=== PATIENT | male | born 1990 | race Caucasian/White ===

== ENCOUNTER 2018-03-12 12:14 | Emergency (ER) | payer OTHER, SELFPAY ==
[2018-03-12 12:15] VITALS: BP 133/76; PULSE 101; RESP 16; TEMP 37.3; O2SAT 97; BMI 29.3
--- NOTE | 2018-03-12 14:29 | ED.DCSUM_ITS ---
- ER Visit Summary Date of Service: 03/12/18 Chief Complaint: Left earache History of Present Illness: The patient is a 27 M no significant past medical or surgical history. Patient states she has had a gradual onset of left earache the last 5 days. Getting worse. Denies any trauma. Denies any fever. No prior ear surgery. Physical Examination: Well appearing 7-year-old male. No acute distress. Vital signs stable afebrile. HEENT exam left TM erythematous and dull. Canal is not swollen. There is no blood. TM is intact. Posterior pharynx normal. Right ear unremarkable. Neck nontender no lymphadenopathy. Trachea midline. Lungs clear to auscultation bilaterally. Heart regular rate and rhythm no murmur. Abdomen soft nontender. Otherwise exam unremarkable. He also has tenderness over his left eustachian tube. Test Results: None Emergency Department Course and Treatment: Treated for acute left otitis media. Amoxicillin 3 times daily for 10 days. Motrin and Tylenol for pain. Follow- up with James Martini his primary care physician if not improving. Treatment Plan: [] Disposition: Discharge Impression: Acute left otitis media This note was generated with [employer] dictation software. It may contain incorrect words, spelling, and punctuation that were not noted in review of the chart prior to signing ED Disposition - Plan for ED Patient: Chief Complaint: Ear Problem Referrals: Care Physician,No Primary [Primary Care Provider] -
--- NOTE | 2018-03-12 14:29 | ED.DEP ---
ED Disposition - Plan for ED Patient: Chief Complaint: Ear Problem Instructions: ED Otitis Media Acute Adult Prescriptions: Amoxicillin [Amoxil] 500 mg PO TID 10 Days tab.chew Referrals: Bartolo Sánchez MD [STAFF PHYSICIAN] - Additional Instructions: Today Tylenol and Motrin for left ear pain. Amoxicillin 1 pill 3 times a day for 10 days. All your primary care physician if not getting better return to ER feeling worse.
[2018-03-12] MEDS: AMOXICILLIN 500 MG CAPSULE PO (14:51)
== END 2018-03-12 14:52 | disposition home or self-care (01) ==
PROVIDERS: Emergency Provider Emergency Medicine; Family Provider Nurse Practitioner Family; PCP Nurse Practitioner Family
DX: H66.92 Otitis media, unspecified, left ear (principal)
CPT/HCPCS: 99283

== ENCOUNTER 2018-08-22 14:56 | Emergency (ER) | payer OTHER, SELFPAY ==
[2018-08-22 14:59] VITALS: BP 126/91; PULSE 101; RESP 17; TEMP 36.5; O2SAT 98; BMI 31.1
[2018-08-22 15:08] VITALS: BP 136/82; PULSE 70; RESP 16; O2SAT 98
--- NOTE | 2018-08-22 15:29 | ED.VISSUMM ---
- ER Visit Summary Date of Service: 08/22/18 Chief Complaint: Post auricular ear pain, decreased hearing for 1 week. History of Present Illness: The patient is a 27 M who presents with left ear pain that he localizes to the postauricular area. He denies ringing in his ears or loss of hearing. He states he has decreased hearing. He he denies discharge from the ear. He denies placing anything in the ear canal. He denies rhinorrhea, congestion, postnasal drainage or sore throat. He does complain of head pain secondary to the postauricular pain. He denies double vision, blurred vision or loss of vision. He has no other complaints. Physical Examination: Vital signs noted and remarkable for a blood pressure of 136/82. There is no discomfort with pushing on the tragus or pulling on the auricle. The external auditory canal is normal. TM is pearly white phlegm is noted. There is no fluid noted behind the TM. There is a mobile firm tender node with no overlying erythema noted. There is no post cervical or posterior occipital lymphadenopathy. There is no evidence of cellulitis of the auricle or face. Test Results: None Emergency Department Course and Treatment: NSAIDs since there is no contraindication Treatment Plan: Prescription for Naprosyn and follow-up with Dr. Martini is primary care provider Disposition: Discharged to home Impression: Left posterior lymphadenitis This note was generated with [employer] dictation software. It may contain incorrect words, spelling, and punctuation that were not noted in review of the chart prior to signing ED Disposition - Plan for ED Patient: Disposition: Home or Assisted Living Chief Complaint: Ear Problem Instructions: ED Cervical Adenitis No Abx Tx Prescriptions: Naproxen [Naprosyn] 500 mg PO BID #14 tablet Referrals: Marquis Pemberton, MARI-C [Primary Care Provider] - 1 Week if not improving Additional Instructions: Your prescription was electronically transmitted to [facility] pharmacy located on [facility].
--- NOTE | 2018-08-22 15:33 | ED.DCSUM_ITS ---
- ER Visit Summary Date of Service: 08/22/18 Chief Complaint: Post auricular ear pain, decreased hearing for 1 week. History of Present Illness: The patient is a 27 M who presents with left ear pain that he localizes to the postauricular area. He denies ringing in his ears or loss of hearing. He states he has decreased hearing. He he denies discharge from the ear. He denies placing anything in the ear canal. He denies rhinorrhea, congestion, postnasal drainage or sore throat. He does complain of head pain secondary to the postauricular pain. He denies double vision, blurred vision or loss of vision. He has no other complaints. Physical Examination: Vital signs noted and remarkable for a blood pressure of 136/82. There is no discomfort with pushing on the tragus or pulling on the auricle. The external auditory canal is normal. TM is pearly white phlegm is noted. There is no fluid noted behind the TM. There is a mobile firm tender node with no overlying erythema noted. There is no post cervical or posterior occipital lymphadenopathy. There is no evidence of cellulitis of the auricle or face. Test Results: None Emergency Department Course and Treatment: NSAIDs since there is no contraindi cation Treatment Plan: Prescription for Naprosyn and follow-up with Dr. Martini is primary care provider Disposition: Discharged to home Impression: Left posterior lymphadenitis This note was generated with [employer] dictation software. It may contain incorrect words, spelling, and punctuation that were not noted in review of the chart prior to signing ED Disposition - Plan for ED Patient: Disposition: Home or Assisted Living Chief Complaint: Ear Problem Instructions: ED Cervical Adenitis No Abx Tx Prescriptions: Naproxen [Naprosyn] 500 mg PO BID #14 tablet Referrals: Marquis Pemberton, MARI-C [Primary Care Provider] - 1 Week if not improving Additional Instructions: Your prescription was electronically transmitted to [facility] pharmacy located on [facility].
[2018-08-22] MEDS: Naproxen 250 MG Tablet 500 MG PO (15:44)
[2018-08-22 15:45] VITALS: BP 123/80; PULSE 83; RESP 16; O2SAT 96
== END 2018-08-22 15:46 | disposition home or self-care (01) ==
PROVIDERS: Emergency Provider Emergency Medicine; Family Provider Nurse Practitioner Family; PCP Nurse Practitioner Family
DX: I88.9 Nonspecific lymphadenitis, unspecified (principal); Z72.0 Tobacco use
CPT/HCPCS: 99283

== ENCOUNTER 2022-12-11 18:12 | Emergency (ER) | payer OTHER, SELFPAY ==
[2022-12-11 18:13] VITALS: BP 157/93; PULSE 102; RESP 18; TEMP 35.9; O2SAT 99; BMI 29.5
--- NOTE | 2022-12-11 18:30 | EX.ED.DYSGE1 ---
HPI History of Present Illness Chief Complaint: Allergic Reaction Narrative Narrative: Patient presents with rash on arms chest and inner thigh region. It is itchy. He thinks it secondary to the chemicals she works at work with. He has no difficulty breathing, no voice change no nausea or vomiting or any other systemic symptoms. \ PFSH PFSH Home Medications naproxen 500 mg tablet 500 mg PO BID ##14 08/22/18 [Rx Last Taken Unknown] Allergy/AdvReac Type Severity Reaction Status Date / Time grass pollen Allergy Hives Verified 12/11/22 18:15 Social History Smoking Status: Current some day smoker ROS ROS ED ROS Narrative Past medical history: Reviewed Medications: Reviewed Social history: Noncontributory Review of systems: All systems negative except as indicated General: No fever ENT: Normal voice Neck: No neck pain Cardiovascular: No chest pain Respiratory: No shortness of breath or cough Gastrointestinal: No abdominal pain, nausea vomiting or diarrhea Musculoskeletal: Denies myalgias no difficulty with ambulation Skin: Rash as in HPI EXAM Physical Exam Narrative Exam Narrative: Physical exam General: Well nourished, Well developed, No Acute Distress Head: Normocephalic, Atraumatic Eyes: Conjunctiva not pale ENT: Moist mucous membranes. Normal voice no stridor Neck: Supple, Nontender, No lymphadenopathy Cardiovascular: Regular rate, Regular rhythm Respiratory: No distress, CTA bilaterally Abdomen: Soft, Nontender, Nondistended Back: Nontender, Normal Inspection. Negative for: CVA tenderness Skin: Erythematous blanching rash that slightly raised on the arms axilla and inter thigh region. This appears allergic. No signs of infection. Const Vital Signs: 12/11/22 18:13 Temperature 96.7 F L Temperature Source Temporal Pulse Rate 102 H Respiratory Rate 18 Blood Pressure 157/93 H Blood Pressure Mean 114 Pulse Ox 99 Oxygen Delivery Method Room Air MDM MDM MDM Narrative Medical decision making narrative: Patient has allergic dermatitis. He appears well. He has no signs or symptoms of systemic involvement at this time. He has no shortness of breath or stridor, I did think about a CBC to see the white count make sure there is no infectious however he has no fever no other systemic signs and I believe at this point a CBC is not needed. He has dermatitis secondary to an allergic factor I will give him Kenalog IM in the emergency department and he can take Benadryl [id number] at home. I do not believe I need to prescribe Benadryl Discharge Plan Triage Chief Complaint: Allergic Reaction ED Provider: Nehemias Nelson Dx/Rx/DC Orders Clinical Impression: Allergic dermatitis, Allergic reaction Instructions: ED General Allergic Reactions Prescriptions: No Action naproxen 500 MG tablet 500 mg PO BID Qty: 14 0RF Primary Care Provider: Care Physician,No Primary Referrals: Care Physician,No Primary [Primary Care Provider] - 3-5 Days Disposition Disposition: Home, Self Care
[2022-12-11] MEDS: Triamcinolone Acetonide 40 MG/ML Vial IM (18:41)
== END 2022-12-11 19:03 | disposition home or self-care (01) ==
PROVIDERS: Emergency Provider Emergency Medicine; Visit Provider Emergency Medicine
DX: T78.40XA Allergy, unspecified, initial encounter (principal); L30.9 Dermatitis, unspecified; F17.200 Nicotine dependence, unspecified, uncomplicated; X58.XXXA Exposure to other specified factors, initial encounter
CPT/HCPCS: 96372; 99282

== ENCOUNTER 2023-08-27 10:36 | Emergency (ER) | payer OTHER, SELFPAY ==
[2023-08-27 10:37] VITALS: BP 153/100; PULSE 87; RESP 18; TEMP 36.2; O2SAT 100; BMI 27.6
--- NOTE | 2023-08-27 11:31 | EX.ED.DYSGE1 ---
HPI <LETY Singleton - Last Filed: 08/27/23 11:38> History of Present Illness Chief Complaint: Dental Narrative Narrative: Patient presenting today due to dental pain that he has had since . He reports that today he tried to eat a peanut butter and jelly sandwich and felt a, popping sensation to the tooth that has been causing him pain, he did not have any discharge from the area. He denies any fever or chills. Denies a PMH of any chronic health conditions. PFSH <LETY Singleton - Last Filed: 08/27/23 11:38> PFSH Medical History no medical history Home Medications naproxen 500 mg tablet 500 mg PO BID #14 tabs 08/22/18 [Rx Last Taken Unknown] naproxen 500 mg tablet 500 mg PO BID #14 tabs 08/27/23 [Rx Last Taken Unknown] penicillin V potassium 500 mg tablet 500 mg PO 4X/DAY #40 tabs 08/27/23 [Rx Last Taken Unknown] Allergy/AdvReac Type Severity Reaction Status Date / Time grass pollen Allergy Hives Verified 08/27/23 10:38 Surgical History no surgical history Social History Smoking Status: Current some day smoker tobacco type: cigarettes ROS <LETY Singleton - Last Filed: 08/27/23 11:38> ROS ED Constitutional Constitutional ED: Denies chills or fever(s) ENT ENT ED: Reports dental pain Cardiovascular Cardiovascular: Denies chest pain Respiratory/Chest Respiratory/Chest: Denies cough or dyspnea Gastrointestinal Gastrointestinal: Denies abdominal pain, nausea or vomiting Musculoskeletal Musculoskeletal: Denies arthralgias or myalgias Integumentary Denies rash Neurologic Neurologic: Denies weakness EXAM <LETY Singleton - Last Filed: 08/27/23 11:38> Physical Exam Const Vital Signs: 08/27/23 10:37 Temperature 97.2 F L Temperature Source Temporal Pulse Rate 87 Respiratory Rate 18 Blood Pressure 153/100 H Blood Pressure Mean 117 Pulse Ox 100 Oxygen Delivery Method Room Air Positive well nourished, well developed and no apparent distress General Appearance ED: well developed HEENT Reports normocephalic and head/scalp atraumatic HEENT Narrative: Posterior pharynx clear, uvula midline, no stridor, no trismus, dental caries to the left mandibular first molar, no sign of dental abscess Mouth ED: Yes moist mucous membranes normal Eyes PERRL and EOMs intact bilaterally Neck full ROM and supple Chest Wall inspection of chest normal Resp normal respiratory effort and clear to auscultation bilaterally Cardio regular rate and regular rhythm GI soft to palpation, non-tender, non-distended and no masses Back/Spine normal ROM and normal to inspection Extremity normal to inspection and full ROM Neuro oriented x3, CN's II-XII intact bilaterally, moves all extremities, no focal motor deficits and no sensory deficits noted Sensorium / Orientation: awake and alert Psych mental status grossly normal and thought process normal Skin no rashes or lesions noted and no wounds <Dr. Sergio Ragsdale MD - Last Filed: 08/27/23 12:51> Physical Exam Const Vital Signs: 08/27/23 10:37 Temperature 97.2 F L Temperature Source Temporal Pulse Rate 87 Respiratory Rate 18 Blood Pressure 153/100 H Blood Pressure Mean 117 Pulse Ox 100 Oxygen Delivery Method Room Air MDM <LETY Singleton - Last Filed: 08/27/23 11:38> [facility] Narrative Medical decision making narrative: Presenting with dental pain to the left mandibular first molar, there is a visible dental carry, no fluctuance or sign of dental abscess, no sign of Ludewig's angina, patient is well-appearing and in no acute distress, vitals are unremarkable. He does have a dentist to follow-up with. He will be started on penicillin and will be given a prescription for naproxen. He will be given first dose here. He will be discharged home in stable condition and is comfortable with plan. <Dr. Sergio Ragsdale MD - Last Filed: 08/27/23 12:51> [facility] Narrative Medical decision making narrative: Presenting with dental pain to the left mandibular first molar, there is a visible dental carry, no fluctuance or sign of dental abscess, no sign of Ludewig's angina, patient is well-appearing and in no acute distress, vitals are unremarkable. He does have a dentist to follow-up with. He will be started on penicillin and will be given a prescription for naproxen. He will be given first dose here. He will be discharged home in stable condition and is comfortable with plan. I have personally performed a face to face assessment of the patient and have reviewed the ELODIA Note. I performed a substantive portion of the visit including all aspects of the following. My lam findings include: History: Patient presents with left lower dental pain. He states it started hurting last week but then got better. Today he felt a popping sensation but no drainage. No fevers or chills. Exam: No facial swelling. Patient is nontoxic. He does have a small dental carry and some tenderness. Floor the mouth is not swollen. No sign of Sy's. Medical Decision Making: Patient will be treated with medications and recommend follow-up with dentist. Certainly if he has trouble swallowing or significant swelling he should return Discharge Plan Triage Chief Complaint: Dental ED Midlevel Provider: Noemi Reeves ED Provider: Sergio Ragsdale Dx/Rx/DC Orders Clinical Impression: Pain, dental, Dental cavity Instructions: ED Dental Pain Prescriptions: New naproxen 500 mg tablet 500 mg PO BID Qty: 14 0RF penicillin V potassium 500 mg tablet 500 mg PO 4X/DAY Qty: 40 0RF No Action naproxen 500 MG tablet 500 mg PO BID Qty: 14 0RF Primary Care Provider: Marquis Pemberton [employer] Referrals: Care Physician,No Primary [Non-Staff] - Activity Restrictions/Additional Instructions: Please follow-up with your dentist, take antibiotics as prescribed and return for any worsening of symptoms. Disposition Disposition: Home, Self Care Discharge Date/Time: 08/27/23 11:54
[2023-08-27] MEDS: Naproxen 250 MG Tablet 500 MG PO (11:48)
[2023-08-27] MEDS: Penicillin Vk 250 MG Tablet 500 MG PO (11:48)
== END 2023-08-27 11:54 | disposition home or self-care (01) ==
LOC: ED 11:53
PROVIDERS: Emergency Provider Emergency Medicine; PCP Nurse Practitioner Family; Visit Provider Emergency Medicine
DX: K02.9 Dental caries, unspecified (principal); F17.210 Nicotine dependence, cigarettes, uncomplicated
CPT/HCPCS: 99283

== ENCOUNTER 2024-02-20 22:13 | Emergency (ER) | payer BC, SELFPAY ==
[2024-02-20 22:14] VITALS: BP 137/84; PULSE 79; RESP 18; TEMP 36.8; O2SAT 97
--- NOTE | 2024-02-20 22:27 | EX.ED.VIS.PS ---
HPI HPI - Psych History of Present Illness Chief Complaint: Suicidal Informant: patient Onset/Context/Timing Onset: Today Context: Sudden Onset Associated Symptoms Associated Symptoms - Psych: Positive for Suicidal Thoughts; Negative for Visual Hallucinations or Auditory Hallucinations Specific plan (suicidal thought): cut wrist w/ razor he was holding Narrative Narrative: 33-year-old male states he is upset about his . Apparently his is an alcoholic according to him, and he states tonight he got into the shower and she took that opportunity to leave. He does not expand upon this, when asked if she left for the evening or left him for good he states basically she is missing and just plain left. No one can get a hold of her, she will not answer her phone, including her daughter who also left the house, was living with them. As result of all of this, states he wanted to cut his wrist with a razor blade but instead I pick pulling machine tender the phone and called for help and now I am here. PFSH PFSH Medical History no medical history no medical history Home Medications NK 02/20/24 [History Last Taken Unknown] Allergy/AdvReac Type Severity Reaction Status Date / Time grass pollen Allergy Hives Verified 02/20/24 22:14 Surgical History no surgical history Social History (Updated 02/20/24 @ 22:[address] Roberto Carlos Erickson MD) Smoking Status: Current some day smoker tobacco type: cigarettes substance use type: marijuana ROS ROS ED Constitutional Constitutional ED: Denies chills or fever(s) Eyes Eyes: Denies change in vision or diplopia ENT ENT ED: Denies rhinorrhea or sore throat Cardiovascular Cardiovascular: Denies chest pain or palpitations Respiratory/Chest Respiratory/Chest: Denies cough or dyspnea Gastrointestinal Gastrointestinal: Denies abdominal pain, diarrhea, nausea or vomiting Genitourinary Genitourinary ED: Denies dysuria or hematuria Musculoskeletal Musculoskeletal: Denies back pain or neck pain Integumentary Denies abscess or rash Neurologic Neurologic: Denies headache(s), paresthesias or weakness Psychiatric Psychiatric: Reports anxiety, depression, suicidal ideation and suicidal thoughts; Denies homicidal ideation EXAM Physical Exam Const Vital Signs: 02/20/24 22:14 02/20/24 23:14 02/20/24 23:23 Temperature 98.3 F Temperature Source Oral Pulse Rate 79 74 72 Respiratory Rate 18 18 Blood Pressure 137/84 H 134/74 H Blood Pressure Mean 101 94 Pulse Ox 97 97 Oxygen Delivery Method Room Air Room Air Positive well nourished and well developed General Appearance ED: well developed and NAD HEENT Reports moist mucous membranes normocephalic and atraumatic Eyes PERRL and EOMs intact bilaterally General Eye ED: Negative for scleral icterus Neck no lymphadenopathy and supple Resp normal respiratory effort and clear to auscultation bilaterally Cardio no murmurs Rate: regular rate Rhythm: regular rhythm GI non-tender and non-distended Auscultation: normoactive bowel sounds Palpation: soft Back/Spine no CVA tenderness and normal ROM Extremity normal to inspection General Extremety ED: Negative for edema General Extremity: Negative for edema Neuro oriented x3, CN's II-XII intact bilaterally, no sensory deficits noted and gait normal Sensorium / Orientation: alert Motor Exam: strength 5/5 throughout Psych mental status grossly normal, thought process normal, cooperative, activity/motor behavior normal and denies homicidal ideation Mood & Affect: depressed and anxious Thought Content: suicidality Insight: insight good Judgement: poor Skin Lesions: no lesions Rashes: no rashes MDM MDM MDM Narrative Medical decision making narrative: Given the patient's history he is given a sitter. Labs obtained as well as toxicology positive for marijuana only which he admits to using, he is otherwise medically cleared for psychiatric evaluation. Crisis contacted to evaluate. Patient cooperative. Crisis agrees that the patient has severe impulsivity issues, and based mostly upon this, recommends placement which I am not opposed to. Lab Data Attestation: I reviewed the patient's lab results. Labs: Laboratory Results - last 24 hr 02/20/24 22:41 WBC 9.2 RBC 4.97 Hgb 14.4 Hct 44.0 MCV 88.5 MCH 29.0 MCHC 32.7 RDW Std Deviation 43.2 RDW Coeff of Arielle 13.4 Plt Count 321 MPV 9.1 Immature Gran % (Auto) 0.200 Neut % (Auto) 79.1 H Lymph % (Auto) 14.[address] [place] % (Auto) 5.7 Eos % (Auto) 0.1 Baso % (Auto) 0.4 Absolute Neuts (auto) 7.3 Absolute Lymphs (auto) 1.34 Nucleated RBC % 0 Sodium 140 Potassium 4.6 Chloride 105 Carbon Dioxide 30.0 Anion Gap 5 BUN 17 Creatinine 0.90 Est GFR (MDRD) Af Amer 126 Est GFR (MDRD) Non-Af 104 BUN/Creatinine Ratio 18.9 Glucose 119 H Calcium 9.2 Urine Opiates Screen NEGATIVE Urine Methadone Screen NEGATIVE Ur Barbiturates Screen NEGATIVE Ur Phencyclidine Scrn NEGATIVE Ur Amphetamines Screen NEGATIVE MDMA (Ecstasy) Screen NEGATIVE U Benzodiazepines Scrn NEGATIVE Urine Cocaine Screen NEGATIVE U Cannabinoids Screen POSITIVE H Ur Drug Screen Comment Ethyl Alcohol < 3.0 Management Discussion w/another healthcare provider: generator worker/Case management Discharge Plan Triage Chief Complaint: Suicidal ED Provider: Roberto Carlos Erickson Dx/Rx/DC Orders Clinical Impression: Suicidal ideation Prescriptions: No Action NK Primary Care Provider: Care Physician,No Primary Referrals: Care Physician,No Primary [Primary Care Provider] - Disposition Disposition: Psychiatric Hospital or Unit
[2024-02-20 22:49] LABS: Absolute Lymphocyte Count 1.34 X10^3/uL (0.83-4.51); Absolute Neutrophil Count 7.3 X10^3/uL (2.0-7.7); Basophil# 0.04 X10^3/uL; Basophil% 0.4 % (0-1); Eosinophil# 0.01 X10^3/uL; Eosinophils% 0.1 % (0-5); Hemoglobin 14.4 g/dL (13.0-16.5); Lymphocyte # 1.34 X10^3/ul (0.83-4.51); Lymphocyte % 14.5 % (19-41); Mean Corp Hgb Conc 32.7 g/dL (32-36); Mean Corpuscular Volume 88.5 fL (80-94); Mean Platelet Vol. 9.1 fl (6.2-12.0); Monocyte# 0.53 X10^3/uL; Monocyte% 5.7 % (0-10); NRBC Flagged by Analyzer 0 % (0-5); Neutrophil # 7.29 X10^3/uL (2.7-7.7); Neutrophil % 79.1 % (47-70); Platelet Count 321 K/mm3 (150-450); RBC Distribution Width CV 13.4 % (11.6-14.6); RBC Distribution Width SD 43.2 fl (35.1-43.9); Red Blood Count 4.97 M/mm3 (4.6-6.2); White Blood Count 9.2 K/mm3 (4.4-11.0)
[2024-02-20 23:05] LABS: Alcohol, Blood (Medical)-Serum < 3.0 mg/dL; Amphetamine Urine VISTA NEGATIVE (<1000 ng/mL); Barbiturate Urine VISTA NEGATIVE (< 200 ng/mL); Benzodiazepine Urine VISTA NEGATIVE (< 200 ng/mL); Cocaine Urine VISTA NEGATIVE (< 300 ng/mL); Ecstacy Urine VISTA NEGATIVE (< 500 ng/mL); Methadone Urine VISTA NEGATIVE (< 300 ng/mL); PCP Urine VISTA NEGATIVE (< 25 ng/mL); THC Urine VISTA POSITIVE (< 50 ng/mL); Vista UDS pH Range 5
[2024-02-20 23:07] LABS: Anion Gap 5 (5-15); BUN 17 mg/dL (7-18); BUN/Creat Ratio 18.9 RATIO (10-20); Calcium,Total 9.2 mg/dL (8.5-10.1); Chloride 105 mmol/L (98-107); EST Glomerular Filtration Rate 104 mL/min (>60); Est Glom Filt Rate - Afr Amer 126 mL/min (>60); Glucose 119 mg/dL (74-106); Potassium 4.6 mmol/L (3.5-5.1); Sodium Level 140 mmol/L (136-145)
[2024-02-20 23:14] VITALS: PULSE 74
[2024-02-20 23:23] VITALS: BP 134/74; PULSE 72; RESP 18; O2SAT 97
--- NOTE | 2024-02-21 00:21 | NURSING ---
INFORMED CRISIS AT 0005
--- NOTE | 2024-02-21 07:28 | NURSING ---
CALLED [facility], TALKED TO YURY. ETA IS 8 AM CREW, 830 OR 9 AM
[2024-02-21 07:30] VITALS: BP 136/84; PULSE 74; RESP 16; O2SAT 99
--- NOTE | 2024-02-21 07:33 | ED.RN ---
rn at the bedside to obtain vitals. pt questioning what we are waiting on. rn explains that he is accepted at [facility] in [place] and that his ride should be arriving by 0900. pt questions, why he is being transfered and refusing transfer. Rn explains that patient has a pink slip d/t behaviors
--- NOTE | 2024-02-21 07:36 | ED.RN ---
pt on the phone with someone stating i am about ready to just get up and walk out of her right to her house. pt continuing phone call cody multiple comments of walking out. pt is aware of pink slip and inability to leave on his own during last noted conversation.
--- NOTE | 2024-02-21 08:15 | ED.RN ---
pt's states he does not want breakfast. rn states if you change your mind it will be on the counter. pt again states i won't want it.
[2024-02-21 09:14] VITALS: BP 138/64; PULSE 74; RESP 16; TEMP 37.2; O2SAT 100
== END 2024-02-21 09:15 ==
PROVIDERS: Emergency Provider Emergency Medicine; Visit Provider Emergency Medicine
DX: F32.A Depression, unspecified (principal); R45.851 Suicidal ideations; F17.210 Nicotine dependence, cigarettes, uncomplicated; F41.9 Anxiety disorder, unspecified
CPT/HCPCS: 36415; 80048; 80307; 80320; 85025; 99284; G0480

== ENCOUNTER 2024-10-21 15:51 | Emergency (ER) | payer BC, SELFPAY ==
[2024-10-21 15:52] VITALS: BP 127/82; PULSE 61; RESP 16; TEMP 35.8; O2SAT 98; BMI 29.0
--- NOTE | 2024-10-21 16:16 | ED.VIS.DENTA ---
HPI History of Present Illness Chief Complaint: Dental Informant: patient Onset/Context/Timing Onset: Weeks (2) Context: Gradual Onset Timing: Continuous Quality: Burning Location: Right upper molars Worsened by: Nothing Relieved by: - (Tylenol, ibuprofen) Associated Symptoms Assocated Symptom - Dental: jaw swelling, face swelling, cold sensitivity and hot sensitivity; Negative for fever Narrative Narrative: Patient presents with dental pain and swelling that has been getting worse over the past 2 weeks. Patient states she had a dentist appointment recently. Patient states he is scheduled to have a follow-up dentist appointment. Patient states that today he noted some swelling over his right face and pain in his right ear. Patient denies any fevers or chills. Patient states he has been taking Tylenol and ibuprofen which has been helping with the pain. Patient admits to hot and cold sensitivity. Patient denies any trauma or injury. Patient denies any sore throat or difficulty swallowing. PFSH PFS Medical History no medical history no medical history Home Medications ?Medication ?Instructions ?Recorded ?Last Taken ?Type penicillin V potassium 500 mg 500 mg PO 4X/DAY #40 tabs 10/21/24 Unknown Rx tablet Allergy/AdvReac Type Severity Reaction Status Date / Time grass pollen Allergy Hives Verified 10/21/24 15:52 Surgical History no surgical history no surgical history Social History Smoking Status: Current some day smoker tobacco type: cigarettes substance use type: marijuana ROS ROS ED Constitutional Constitutional ED: Denies chills or fever(s) Eyes Eyes: Denies blurry vision or change in vision ENT ENT ED: Denies rhinorrhea or sore throat Cardiovascular Cardiovascular: Denies chest pain or palpitations Respiratory/Chest Respiratory/Chest: Denies cough or dyspnea Gastrointestinal Gastrointestinal: Denies nausea or vomiting Genitourinary Genitourinary ED: Denies dysuria or hematuria Musculoskeletal Musculoskeletal: Denies back pain or neck pain Integumentary Denies abscess or rash Neurologic Neurologic: Denies headache(s) or weakness Allergic/Immunologic Allergic/Immunologic ED: Denies mouth swelling or urticaria EXAM Physical Exam Const Vital Signs: 10/21/24 15:52 Temperature 96.4 F L Temperature Source Temporal Pulse Rate 61 Respiratory Rate 16 Blood Pressure 127/82 H Blood Pressure Mean 97 Pulse Ox 98 Oxygen Delivery Method Room Air Positive well nourished and well developed General Appearance ED: well developed and NAD HEENT HEENT Narrative: There is dental caries and tenderness over the left upper first and second molars. There is some gingival edema around these teeth. There is no fluctuance. There is no discharge or drainage. Oral mucosa is pink and moist. Oropharynx is clear. Airway is patent. Neck is supple. Trachea is midline. There are some mild anterior cervical adenopathy on the right. There is no sublingual edema. There is no evidence of Raudel's angina. Teeth and Gingiva: caries and gingiva abnormal Positive for gingival edema Throat: posterior oropharynx normal Neck supple and no JVD General: Negative for anterior neck swelling or submandibular swelling Lymph Lymphatic: lymphadenopathy Lymphadenopathy Laterality: right Positive for multiple, small and tender Neuro oriented x3, CN's II-XII intact bilaterally, moves all extremities, no focal motor deficits and no sensory deficits noted Sensorium / Orientation: alert Motor Exam: strength 5/5 throughout Psych mental status grossly normal MDM MDM MDM Narrative Medical decision making narrative: Patient was advised that this is infected dental caries. Patient was given a dose of Pen-Vee K here. Patient was given a prescription for Pen-Vee K. Patient was instructed to continue Tylenol and ibuprofen as needed for pain. Patient was instructed to follow-up with his dentist as scheduled. Patient was instructed to return if worse in any way. Patient understood and was agreeable with plan. All questions were answered. Discharge Plan Triage Chief Complaint: Dental ED Provider: Bartolo Coffman Dx/Rx/DC Orders Clinical Impression: Infected dental caries Instructions: ED Dental Pain, ED Dental Abscess Prescriptions: New penicillin V potassium 500 mg tablet 500 mg PO 4X/DAY Qty: 40 0RF Primary Care Provider: Care Physician,No Primary Referrals: Care Physician,No Primary [Primary Care Provider] - Dentist,Your [STAFF PHYSICIAN] - Keep Dariana appointment Print Language: Andorran Disposition Disposition: Home, Self Care
[2024-10-21] MEDS: Penicillin Vk 250 MG Tablet 500 MG PO (16:32)
== END 2024-10-21 16:39 | disposition home or self-care (01) ==
LOC: ED 16:23
PROVIDERS: Emergency Provider Emergency Medicine; Visit Provider Emergency Medicine
DX: K02.9 Dental caries, unspecified (principal); F17.210 Nicotine dependence, cigarettes, uncomplicated
CPT/HCPCS: 99282

== ENCOUNTER 2025-05-05 23:02 | Emergency (ER) | payer SELFPAY ==
[2025-05-05 23:03] VITALS: BP 134/104; PULSE 136; RESP 16; TEMP 36.8; O2SAT 100; BMI 30.3
[2025-05-05 23:36] LABS: Absolute Lymphocyte Count 2.08 X10^3/uL (0.83-4.51); Absolute Neutrophil Count 8.1 X10^3/uL (2.0-7.7); Basophil# 0.03 X10^3/uL; Basophil% 0.3 % (0-1); Eosinophils% 0.9 % (0-5); Hematocrit 43.3 % (40-54); Hemoglobin 14.6 g/dL (13.0-16.5); Lymphocyte # 2.08 X10^3/ul (0.83-4.51); Lymphocyte % 18.9 % (19-41); Mean Corp Hgb Conc 33.7 g/dL (32-36); Mean Corpuscular Hgb 28.9 pg (27.0-32.0); Mean Corpuscular Volume 85.6 fL (80-94); Mean Platelet Vol. 8.7 fl (6.2-12.0); Monocyte# 0.62 X10^3/uL; Monocyte% 5.6 % (0-10); NRBC Flagged by Analyzer 0 % (0-5); Neutrophil # 8.11 X10^3/uL (2.7-7.7); Neutrophil % 73.9 % (47-70); Platelet Count 337 K/mm3 (150-450); RBC Distribution Width CV 13.7 % (11.6-14.6); RBC Distribution Width SD 42.6 fl (35.1-43.9); Red Blood Count 5.06 M/mm3 (4.6-6.2)
[2025-05-05 23:59] LABS: Anion Gap 14 (5-15); BUN 14 mg/dL (4-19); BUN/Creat Ratio 13.2 RATIO (10-20); Calcium,Total 9.1 mg/dL (7.6-11.0); Carbon Dioxide 22.8 mmol/L (21.0-32.0); Chloride 104 mmol/L (98-108); Creatinine, Serum 1.06 mg/dL (0.70-1.20); EST Glomerular Filtration Rate 95 (>60); Estimated Creatinine Clearance 108.31 ml/min (50-250); Glucose 159 mg/dL (70-99); Potassium 3.2 mmol/L (3.3-5.1); Sodium Level 140 mmol/L (133-145)
[2025-05-05 23:59] LABS: Amphetamine Urine NEGATIVE (<1000 ng/mL); Barbiturate Urine NEGATIVE (< 200 ng/mL); Benzodiazepine Urine NEGATIVE (< 200 ng/mL); Buprenorphine Urine NEGATIVE (< 200 ng/mL); Cocaine Urine NEGATIVE (< 300 ng/mL); Fentanyl, Urine NEGATIVE; Methadone Urine NEGATIVE (< 300 ng/mL); Opiates Urine NEGATIVE (< 300 ng/mL); Oxycodone, Urine NEGATIVE (< 100 ng/mL); PCP Urine NEGATIVE (< 25 ng/mL); THC Urine PRESUMPTIVE POSITIVE (< 50 ng/mL)
--- NOTE | 2025-05-06 00:04 | EDS_ITS ---
HPI History of Present Illness Chief Complaint: Mental Health Narrative Narrative: Patient is a 34-year-old male past medical history of suicidal ideation with previous psychiatric hospitalization about a year ago he states who presents to the emergency department after being involved in an argument with his . He states that he was preparing to go shooting this weekend and noted that he had his gun out of the safe and notes that his and him got an argument and he states that he decided to put the gun away before he let his emotions get the best of him. He states that the next thing he knew along for spine showed up and hands appeared in the emergency department. Patient states that he is not suicidal or homicidal here in the emergency department PFSH PFS Home Medications ?Medication ?Instructions ?Recorded ?Last Taken ?Type NK 05/05/25 Unknown History Allergy/AdvReac Type Severity Reaction Status Date / Time grass pollen Allergy Hives Verified 05/05/25 23:08 Social History Smoking Status: Current some day smoker tobacco type: e-cigarettes substance use type: marijuana ROS ROS ED ROS Narrative Constitutional: Denies headache, lightness, dizziness Cardiovascular: Denies chest pain Respiratory: No shortness of breath Neurological: Denies numbness, weakness, tingling Skin: Denies rashes or lesions Psychiatric: Denies suicidal homicidal ideation EXAM Physical Exam Narrative Exam Narrative: General: Patient is lying in bed rest comfortably not appear to be acute distress Head: Atraumatic, normocephalic Eyes: PERRL bilaterally, EOMI bilateral, no conjunctival injection noted Neck: Soft, supple, trachea midline Cardiovascular: Patient tachycardic with regular rhythm Respiratory: Clear to auscultation bilaterally Extremities: +5/5 strength noted in the bilateral upper and lower extremities, radial pulse +2/4 in the bilateral extremities, no pedal edema exam Neurological: Patient following commands knew that he was at [facility] the year is 2024 Skin: Warm, dry, tact no rashes or lesions noted Psychiatric: Patient is cooperative Const Vital Signs: 05/05/25 23:03 05/06/25 00:16 Temperature 98.3 F Temperature Source Oral Pulse Rate 136 H Respiratory Rate 16 16 Blood Pressure 134/104 H Blood Pressure Mean 114 Pulse Ox 100 MDM MDM MDM Narrative Medical decision making narrative: Patient is a 34-year-old male who presented to the emergency department the chief complaint of being involved in a argument with his significant other. On the differential diagnosis includes but not limited to suicidal ideation, homicidal ideation, anxiety, depression. Once the patient is medically cleared he will be evaluated by social work/crisis. According to triage note the patient was in a dispute at home regarding patient's breaking her sobriety he grabbed his gun and attempt to move to a safe. Per PD patient grabbed his gun loaded it and said he was going to shoot himself and in triage he states that he is messed up. [employer] slip that was filled out states that the patient stated that that the only reason that he did not shoot himself was secondary to him having to work tomorrow. Statement from family said that while he was holding the gun he made a statement give me a reason not to do it. Patient CBC reviewed showed no evidence leukocytosis white blood count normal 11, hemoglobin is 14.6, platelet count of 337. Patient sodium was 140, potassium was 3.2, creatinine was normal at 1.06. Patient drug screen was presumptive positive for cannabis and alcohol levels less than 10. Social work team evaluated the patient and they feel that it is reasonable to safety plan the patient. Patient's parents showed up at bedside and are agreeable this plan they would like to take him home. Patient is going to stay with his father as there are no guns in the home and notes that he will be staying there for a few days and then stay with his mother for few days. After this they note that when he goes to return back to his home there will be no weapons in the house. Social work team states that they will be following up with him in the next couple days as well. Patient is adamantly denying suicidal homicidal ideations here in the emergency department Lab Data Labs: Laboratory Results - last 24 hr 05/05/25 05/05/25 23:22 23:29 WBC 11.0 RBC 5.06 Hgb 14.6 Hct 43.3 MCV 85.6 MCH 28.9 MCHC 33.7 RDW Std Deviation 42.6 RDW Coeff of Arielle 13.7 Plt Count 337 MPV 8.7 Immature Gran % (Auto) 0.400 Neut % (Auto) 73.9 H Lymph % (Auto) 18.9 L [place] % (Auto) 5.6 Eos % (Auto) 0.9 Baso % (Auto) 0.3 Absolute Neuts (auto) 8.1 H Absolute Lymphs (auto) 2.08 Nucleated RBC % 0 Sodium 140 Potassium 3.2 L Chloride 104 Carbon Dioxide 22.8 Anion Gap 14 BUN 14 Creatinine 1.06 Estim Creat Clear Calc 108.31 Est GFR (MDRD) Non-Af 95 BUN/Creatinine Ratio 13.2 Glucose 159 H Calcium 9.1 Urine Opiates Screen NEGATIVE U Buprenorphine Qual NEGATIVE Ur Oxycodone Screen NEGATIVE Urine Methadone Screen NEGATIVE Urine Fentanyl Screen NEGATIVE Ur Barbiturates Screen NEGATIVE Ur Phencyclidine Scrn NEGATIVE Ur Amphetamines Screen NEGATIVE U Benzodiazepines Scrn NEGATIVE Urine Cocaine Screen NEGATIVE U Cannabinoids Screen PRESUMPTIVE POSITIVE Ethyl Alcohol < 10.1 Discharge Plan Triage Chief Complaint: Mental Health ED Provider: Luis Reno Dx/Rx/DC Orders Clinical Impression: Anxiety Prescriptions: No Action NK Primary Care Provider: Care Physician,No Primary Referrals: Care Physician,No Primary [Primary Care Provider] - Rina Garcia Tere, [employer]] - Activity Restrictions/Additional Instructions: Follow-up with your doctor in the outpatient setting you referred to 1. Use the resources that social work provided with you. Return with worsening symptoms or concerns Print Language: [place]awk Disposition Disposition: Home, Self Care
[2025-05-06 00:16] VITALS: RESP 16
--- OUTSIDE RECORDS SUMMARY | 2025-05-06 00:18 | XMS RPT_ITS | CCD ---
Author Organization [facility] Inform ion Partnership [facility] Care Team Providers Care Computer Technical Specialist Name Role Phone KEE Baldwin CNP, MARQUIS Christopher Primary Care Phys ician Unavailable Primary Care Provider Unavailabl e PHYSICIAN, NONE Primary Care Physician Unavailab jose GRAY MD, HERBERT Murdock Attending Unavail able PHYSICIAN, NONE Primary Care Unavailable Roberto Carlos Erickson Attending Unavailable Care Physician, No Primary Primary Care Unava ilable Bartolo Coffman Attending Unavailable Care Physician, No Primary Primary Care Unava ilable PHYSICIAN, NONE Primary Care Unavailable GHISLAINE SHANKAR, DR IRVIN Ibrahim Attending Unavailabl e Unavailable Primary Care Provider Unavailabl e Allergies Allergy Classification Reported Allergen(s) Allergy Type Date of Onset Reaction(s) Facility (4 sources) seasonal enviromental Allergy to substance Sneezing (finding) [facility] (1 source) Grass pollen Drug allergy (disorder) [address] [place] [address] Repository Medications Current Medications Medication Drug Class(es) Dates Sig (Normalized) Sig (Original) acetaminophen 500 mg oral tablet (4 sources) Start: 04-06-2020 acetaminophen 500 mg oral tablet Dose : 1,000 mg = 2 tab(s), Oral, q6hr, 0 Refill(s) Start Date: 04/06/20 Status: Ordered Repeat number: 1 amoxicillin 875 mg oral tablet (2 sources) Penicillin-class Antibacterial Start: 04-26-2022 End: 05-03-2022 take 1 tablet by mouth twice daily amoxicillin (AMOXIL) 875 mg tablet Take 1 tablet by mouth twice daily for 7 days. 14 tablet 0 04/26/2022 05/03/2022 Active Comment on above: Take 1 tablet by nikole th twice daily for 7 days. amoxicillin 875 mg / clavulanate 125 mg oral tablet (3 sources) Penicillin-class Antibacterial Start: 12-26-2024 End: 01-02-2025 take 1 tablet by mouth twice daily amoxicillin-clavul anate potassium (AUGMENTIN) 875-125 mg per tablet Indications: Acute otitis media, left Take 1 tablet by mouth two times a day for 7 days. 14 tablet 12/26/2024 01/02/2025 Active Start: 07-08-2022 End: 07-18-2022 take 1 tablet by mouth twice daily amoxicillin-clavulanic acid (AUGMENTIN) 875-125 mg per tablet Indications: Pain, dental Take 1 tablet by mouth twice daily for 10 days. 20 tablet 0 07/08/2022 07/18/2022 Active Comment on above: Take 1 tablet by [facility] twice daily for 10 days. benzocaine 0.1 mg/mg oral gel (1 source) Standardized Chemical Allergen Start: 06-11-20 End: 06-16-20 apply 1 dose topically four times daily Orajel D 10% mucous membrane gel Dose = 1 lalito, Topical, QID, X 5 day(s), # 7 gram(s), 0 Refill(s) Start Date: 06/11/22 Stop Date: 06/16/22 Status: Ordered doxycycline hyclate 100 mg oral capsule (1 source) Tetracycline-class Drug Start: 06-27-20 End: 07-07-20 doxycycline hyclate 100 mg oral capsule Dose : 100 mg = 1 cap(s), Oral, BID, X 10 day(s), # 20 cap(s), 0 Refill(s), 07/07/23 4:13:00 PM EDT, 88.6 Start Date: 06/27/23 Stop Date: 07/07/23 Status: Ordered fluticasone propionate 0.05 mg/actuat metered dose nasal spray (5 sources) Corticosteroid Start: 05-01-20 take 1 spray(s) nasal route once as needed fluticasone propionate(FLONASE 50 MCG/ACTUATION NASAL SPRAY) 1 spray per nostril once a day prn nasal allergy symptoms 1 2 05/01/2009 Active Comment on above: 1 spray per nostril once a day prn nasal allergy symptoms ketotifen 0.25 mg/ml ophthalmic solution (5 sources) Histamine-1 Receptor Inhibitor Start: 05-01-20 09 KETOTIFEN FUMARATE 0.025 % EYE DROPS 1 drop in afected eye(s) every 8 to 12 hours as needed 5 ml 1 05/01/2009 Active Start: 05-01-2009 KETOTIFEN FUMA RATE 0.025 % EYE DROPS 1 drop in afected eye(s) every 8 to 12 hours as needed 5 ml 1 05/01/2009 Active Comment on above: 1 drop in afected ey e(s) every 8 to 12 hours as needed loratadine 10 mg oral tablet (5 sources) Start: 07-13-2009 LORATADINE 10 MG TAB Take one(1) tablet daily prn allergy symptoms 30 3 07/13/2009 Active Comment on above: Take one(1) tablet d aily prn allergy symptoms naproxen sodium 220 mg oral tablet (8 sources) Nonsteroidal Anti-inflammatory Drug Start: 11-12-2019 Aleve 220 mg oral tablet Dose : 220 mg = 1 tab(s), Oral, q8h, PRN as needed for pain, # 30 tab(s), 0 Refill(s) Start Date: 11/12/19 Status: Ordered Quantity: 30.0 Unit: tab(s) Repeat number: 1 Start: 08-22-2018 End: 02-20-2024 take 500 mg by mouth twice daily Naproxen Discontinued 500 MG PO TWICE A DAY August 27, 2023 12:00am February 20, 2024 10:14pm [place] (Nk) (1 source) Start: 02-20-2024 [place] (Nk) Active February 20, 2024 12:00am predniSONE 20 mg oral tablet (2 sources) Start: 04-26-2022 End: 04-30-2022 take 2 tablets by mouth once daily predniSONE (DELTASONE) 20 mg tablet Take 2 tablets by mouth once daily for 4 days. 8 tablet 0 04/26/2022 04/30/2022 Active Comment on above: Take 2 tablets by [facility] once daily for 4 days. Completed/Discontinued Medications Medication Drug Class(es) Dates Sig (Normalized) Sig (Original) 2 ml ketorolac tromethamine 30 mg/ml injection (1 source) Nonsteroidal Anti-inflammatory Drug, Cyclooxygenase Inhibitor Start: 07-08-2022 End: 07-08-2022 keTORolac 60 mg injection (TORADOL) nabumetone 500 mg oral tablet (3 sources) Nonsteroidal Anti-inflammatory Drug Start: 06-11-2022 End: 06-25-2022 nabumetone 500 mg oral tablet Dose : 1,000 mg = 2 tab(s), Oral, BID, # 56 tab(s), 0 Refill(s) Start Date: 06/11/22 Stop Date: 06/25/22 Status: Ordered Quantity: 56.0 Unit: tab(s) Repeat number: 1 penicillin v potassium 500 mg oral tablet (3 sources) Start: 08-27-2023 End: 02-20-2024 take 500 mg by mouth four times daily Penicillin V Potassium Discontinued 500 MG PO 4 TIMES DAILY 40 August 27, 2023 12:00am February 20, 2024 10:14pm Start: 06-11-2022 End: 06-18-2022 penicillin V potassium 500 m g oral tablet Dose : 500 mg = 1 tab(s), Oral, QID, X 7 day(s), # 28 tab(s), 0 Refill(s), 06/18/22 9:49:00 EDT, 88.6 Start Date: 06/11/22 Stop Date: 06/18/22 Status: Ordered Problems Active Problems Problem Classification Problem Date Documented Da te Episodic/Chronic Allergic reactions (4 sources) Allergic reaction; Translations: [Allergy, unspecified, initial encounter] 12-19-2022 Episodic Disorders of teeth and jaw (6 sources) Toothache; Translations: [Other specified disorders of teeth and supporting structures] Onset: 11-19-2024 Episodic Gastritis and duodenitis (2 sources) Gastritis; Translations: [Gastritis, unspecified, without bleeding] 09-01-2016 Episodic Inflammatory conditions of male genital organs (2 sources) Abscess of scrotum; Translations: [Inflammatory disorders of scrotum] 12-15-2015 Episodic Lymphadenitis (1 source) Lymphadenitis; Translations: [Nonspecific lymphadenitis, unspecified] Onset: 06-27-2023 Episodic Other lower respiratory disease (1 source) Cough; Translations: [Cough] Episodic Other skin disorders (2 sources) Folliculitis; Translations: [Follicular disorder, unspecified] 12-15-2015 Episodic Other upper respiratory disease (4 sources) Seasonal allergic rhinitis 06-13-2015 Chronic Other upper respiratory infections (1 source) Sore throat symptom; Translations: [Acute pharyngitis, unspecified] Episodic Otitis media and related conditions (2 sources) Acute suppurative otitis media without spontaneous rupture of ear drum; Translations: [Acute suppurative otitis media without spontaneous rupture of ear drum, left ear] Episodic Residual codes; unclassified (1 source) Viral syndrome; Translations: [Other general symptoms and signs] 12-26-2024 Episodic Skin and subcutaneous tissue infections (2 sources) Cellulitis of trunk; Translations: [Cellulitis of trunk, unspecified] 12-15-2015 Episodic Unclassified (2 sources) No history of clinical finding in subject; Translations: [No significant past medical history] 12-14-2015 Past or Other Problems Problem Classification Problem Date Documented Da te Episodic/Chronic Suicide and intentional self-inflicted injury (2 sources) Suicidal thoughts; Translations: [Suicidal ideations] Onset: 02-28-2024 02-20-2024 Episodic Results Test Name Value Interpretation Reference Range Facility [facility] 12-30-2024 [facility] Telephone (UCTR) -------- DEAN WHITE ([id number]) 1990 M Date Time Provider Department 12/30/24 SHAHEEN OSUNA [facility] During your visit today, we recorded the following information about you: Beth Babb RN 12/30/2024 2:53 PM Signed Patient calls and states that he was Covid and Flu tested on 12/26/2024. Patient is asking about results from testing. KHLOE So Sabrina, MA 12/30/2024 5:23 PM Signed Pt was notified of the results. Pt verbalized understanding. Michelle Garay MA Allergies As of Date: 12/30/2024 (No Known Allergies) Date Reviewed: 12/26/2024 Reviewed by: Ngozi Grande LPN - Fully Assessed Reason for Visit: Patient Question [1477] Prescriptions as of 12/30/2024 - amoxicillin-clavulanate potassium (AUGMENTIN) 875-125 mg per tablet Take 1 tablet by mouth two times a day for 7 days. - LORATADINE 10 MG TAB Take one(1) tablet daily prn allergy symptoms - KETOTIFEN FUMARATE 0.025 % EYE DROPS 1 drop in afected eye(s) every 8 to 12 hours as needed - fluticasone propionate(FLONASE 50 MCG/ACTUATION NASAL SPRAY) 1 spray per nostril once a day prn nasal allergy symptoms Problem List As Of Date: 12/30/2024 (None) Encounter Status:Closed by MICHELLE GARAY on 12/30/24 [facility] CNOVon 12-26-2024 CNOV Office Visit (UCWSTR ) -------- DEAN WHITE ([id number]) 1990 M Date Time Provider Department 12/26/24 10:30 AM SHAHEEN OSUNA [facility] During your visit today, we recorded the following information about you: Temperature Pulse Respiration Blood pressure 101.6 degrees 89/minute 20/minute 120/72 Weight 86 kg Shaheen Osuna APRN.OLIVING MACHINE OPERATOR 12/26/2024 11:19 AM Signed Subjective HPI HPI Dean White is a 34 year old male who presents today for CC of cough, congestion, fever, ear pain. This started 3 days ago. Has tried otc medication for relief. Symptoms are worsened by noting. Risk factors sick exposures. smoker. .Patient presents with: Fever: Bodyaches, chills, congestion, cough, sore throat, vomiting x 3 days Ear Pain: Bilat ear pain, L worse x 3 days PAST MEDICAL HISTORY Diagnosis Date Allergic rhinitis, cause unspecified PAST SURGICAL HISTORY Procedure Laterality Date NONE ALLERGIES Patient has no known allergies. MEDICATIONS amoxicillin-clavulanate potassium (AUGMENTIN) 875-125 mg per tablet Take 1 tablet by mouth two times a day for 7 days. LORATADINE 10 MG TAB Take one(1) tablet daily prn allergy symptoms (Patient not taking: Reported on 07/08/2022) KETOTIFEN FUMARATE 0.025 % EYE DROPS 1 drop in afected eye(s) every 8 to 12 hours as needed (Patient not taking: No sig reported) fluticasone propionate(FLONASE 50 MCG/ACTUATION NASAL SPRAY) 1 spray per nostril once a day prn nasal allergy symptoms (Patient not taking: No sig reported) FAMILY HISTORY Problem Relation Age of Onset Diabetes Maternal Grandfather Cancer Maternal Grandmother breast and lung cancer non smoker Social History Tobacco Use Smoking status: Never Passive exposure: Yes Smokeless tobacco: Never Substance Use Topics Alcohol use: Yes Drug use: Yes Types: Marijuana Review of Systems Constitutional: Positive for fever. HENT: Positive for congestion and ear pain. Negative for ear discharge, nosebleeds and sore throat. Respiratory: Positive for cough. Negative for shortness of breath and wheezing. Musculoskeletal: Negative for neck pain. Skin: Negative for itching and rash. Objective Blood pressure 120/72, pulse 89, temperature (!) 38.7 ?C (101.6 ?F), resp. rate 20, weight 86 kg (189 lb 9.5 oz), SpO2 99%. Physical Exam Constitutional: General: He is not in acute distress. Appearance: He is not toxic-appearing or diaphoretic. HENT: Head: Normocephalic and atraumatic. Right Ear: Hearing, tympanic membrane, ear canal and external ear normal. Left Ear: Hearing, ear canal and external ear normal. Tympanic membrane is erythematous (mild) and bulging. Tympanic membrane is not perforated. Nose: Nose normal. Mouth/Throat: Pharynx: Uvula midline. No pharyngeal swelling, oropharyngeal exudate, posterior oropharyngeal erythema or uvula swelling. Eyes: General: Lids are normal. No scleral icterus. Right eye: No discharge. Left eye: No discharge. Conjunctiva/sclera: Conjunctivae normal. Pupils: Pupils are equal, round, and reactive to light. Neck: Trachea: Trachea normal. Cardiovascular: Rate and Rhythm: Normal rate and regular rhythm. Heart sounds: Normal heart sounds. Pulmonary: Effort: Pulmonary effort is normal. Breath sounds: Normal breath sounds. Musculoskeletal: Cervical back: Normal range of motion and neck supple. Lymphadenopathy: Cervical: No cervical adenopathy. Right cervical: No superficial cervical adenopathy. Left cervical: No superficial cervical adenopathy. Skin: Findings: No rash. Neurological: Mental Status: He is alert and oriented to person, place, and time. ASSESSMENT/PLAN: 1. Acute otitis media, left - ICD9: 382.9, ICD10: H66.92 (primary diagnosis) Otc management, hold atb, if worsening s/s take atb - Supportive care with plenty of fluids, rest, and analgesia prn. - Follow up in 3-5 days if symptoms persist or worsen. - AMOXICILLIN 875 MG-POTASSIUM CLAVULANATE 125 MG TABLET 2. Flu-like symptoms - ICD9: 780.99, ICD10: R68.89 -duration 3 days, no test/treatment indicated -given educational handout -push fluids/rest -discussed likely course/contagiousness -discussed conservative measures -f/u in 3-5 days if symptoms persist/worsen Shaheen Osuna APRN.OLIVING MACHINE OPERATOR Allergies As of Date: 12/26/2024 (No Known Allergies) Date Reviewed: 12/26/2024 Reviewed by: Ngozi Grande LPN - Fully Assessed Reason for Visit: Fever [47] Cmt: Bodyaches, chills, congestion, cough, sore throat, vomiting x 3 days Ear Pain [817] Cmt: Bilat ear pain, L worse x 3 days Primary Visit Diagnosis:Acute otitis media, left [H66.92] Other Visit Diagnosis:Flu-like symptoms [R68.89] Order(s):amoxicillin-cla vulanate potassium (AUGMENTIN) 875-125 mg per tabletTake 1 tablet by mouth two times a day for 7 days.Disp: 14 tabletRfl: 0 Prescriptions as of 12/26/2024 - amoxicillin (more content not included)... Normal [facility] Emergency Department Summary on 10-21-2024 Emergency Department Summary [facility] Medical Records Department [address] [place] [id number] Emergency Department Summary 10/21/24 MR#: [id number] Acct: [id number] Name: DEAN WHITE Rep #: [id number] : 1990 33 From: Bartolo Coffman DO PCP: Care Physician,No Primary Status:DEP ER Location: ED HPI History of Present Illness Chief Complaint: Dental Informant: patient Onset/Context/Timing Onset: Weeks (2) Context: Gradual Onset Timing: Continuous Quality: Burning Location: Right upper molars Worsened by: Nothing Relieved by: - (Tylenol, ibuprofen) Associated Symptoms Assocated Symptom - Dental: jaw swelling, face swelling, cold sensitivity and hot sensitivity; Negative for fever Narrative Narrative: Patient presents with dental pain and swelling that has been getting worse over the past 2 weeks. Patient states she had a dentist appointment recently. Patient states he is scheduled to have a follow-up dentist appointment. Patient states that today he noted some swelling over his right face and pain in his right ear. Patient denies any fevers or chills. Patient states he has been taking Tylenol and ibuprofen which has been helping with the pain. Patient admits to hot and cold sensitivity. Patient denies any trauma or injury. Patient denies any sore throat or difficulty swallowing. PFSH PFS Medical History no medical history no medical history Home Medications ???Medication ???Instructions ???Recorded ???Last Taken ???Type penicillin V potassium 500 mg 500 mg PO 4X/DAY #40 tabs 10/21/24 Unknown Rx tablet Allergy/AdvReac Type Severity Reaction Status Date / Time grass pollen Allergy Hives Verified 10/21/24 15:52 Surgical History no surgical history no surgical history Social History Smoking Status: Current some day smoker tobacco type: cigarettes substance use type: marijuana ROS ROS ED Constitutional Constitutional ED: Denies chills or fever(s) Eyes Eyes: Denies blurry vision or change in vision ENT ENT ED: Denies rhinorrhea or sore throat Cardiovascular Cardiovascular: Denies chest pain or palpitations Respiratory/Chest Respiratory/Chest: Denies cough or dyspnea Gastrointestinal Gastrointestinal: Denies nausea or vomiting Genitourinary Genitourinary ED: Denies dysuria or hematuria Musculoskeletal Musculoskeletal: Denies back pain or neck pain Integumentary Denies abscess or rash Neurologic Neurologic: Denies headache(s) or weakness Allergic/Immunologic Allergic/Immunologic ED: Denies mouth swelling or urticaria EXAM Physical Exam Const Vital Signs: 10/21/24 15:52 Temperature 96.4 F L Temperature Source Temporal Pulse Rate 61 Respiratory Rate 16 Blood Pressure 127/82 H Blood Pressure Mean 97 Pulse Ox 98 Oxygen Delivery Method Room Air Positive well nourished and well developed General Appearance ED: well developed and NAD HEENT HEENT Narrative: There is dental caries and tenderness over the left upper first and second molars. There is some gingival edema around these teeth. There is no fluctuance. There is no discharge or drainage. Oral mucosa is pink and moist. Oropharynx is clear. Airway is patent. Neck is supple. Trachea is midline. There are some mild anterior cervical adenopathy on the right. There is no sublingual edema. There is no evidence of Raudel's angina. Teeth and Gingiva: caries and gingiva abnormal Positive for gingival edema Throat: posterior oropharynx normal Neck supple and no JVD General: Negative for anterior neck swelling or submandibular swelling Lymph Lymphatic: lymphadenopathy Lymphadenopathy Laterality: right Positive for multiple, small and tender Neuro oriented x3, CN's II-XII intact bilaterally, moves all extremities, no focal motor deficits and no sensory deficits noted Sensorium / Orientation: alert Motor Exam: strength 5/5 throughout Psych mental status grossly normal MDM MDM MDM Narrative Medical decision making narrative: Patient was advised that this is infected dental caries. Patient was given a dose of Pen-Vee K here. Patient was given a prescription for Pen-Vee K. Patient was instructed to continue Tylenol and ibuprofen as needed for pain. Patient was instructed to follow-up with his dentist as scheduled. Patient was instructed to return if worse in any way. Patient understood and was agreeable with plan. All questions were answered. Discharge Plan Triage Chief Complaint: Dental ED Provider: Bartolo Coffman Dx/Rx/DC Orders Clinical Impression: Infected dental caries Instructions: ED Dental Pain, ED Dental Abscess Prescriptions: New penicillin V potassium 500 mg tablet 500 mg PO 4X/DAY Qty: 40 0RF Primary Care Provider: Care Phys (more content not included)... Normal [facility] Absolute lymphocyte countOrd ered By: Roberto Carlos Erickson on 02-20-2024 Lymphocytes Auto (Unsp spec) [#/Vol] 1.34 10*3/uL 0.83-4.51 [facility] Alcohol, Blood (Medical)-Ser umon 02-20-2024 SERUM ETOH < 3.0 Normal [facility] Comment on above: Result Comment: The serum:whole blood ethanol ratio is approximately 1.14 and varies slightly with hematocrit. Medical Alcohol reference interval and critical value in non-tolerant individuals; 50 - 100 Impairment 100 Intoxication 100 - 250 Severe Poisoning 250 - 400 Deep/possible fatal coma Performed By: #### L 100.0100, L501.9100, L500.2500, L505.5000 #### [facility] [address] [place], [address] Automated lymphocyte count a s percentage of total leukocytesOrdered By: Roberto Carlos Erickson on 02-20-2024 Lymphocytes/100 WBC Auto (Unsp spec) 14.5 % 19-41 [facility] Basic Metabolic Profile (BMP )on 02-20-2024 BUN/CRE 18.9 RATIO Normal 10-20 [facility] Comment on above: Performed By: #### L 100.0100, L501.9100, L500.2500, L505.5000 #### [facility] [address] [place], [address] CA,Total 9.2 mg/dL Normal 8.5-10.1 [facility] Comment on above: Performed By: #### L 100.0100, L501.9100, L500.2500, L505.5000 #### [facility] [address] [place], [address] Chloride [Moles/Vol] 105 mmol/L Normal 98-107 [facility] Comment on above: Performed By: #### L 100.0100, L501.9100, L500.2500, L505.5000 #### [facility] [address] [place], [address] CO2 [Moles/Vol] 30.0 mmol/L Normal 21.0-32.0 [facility] Comment on above: Performed By: #### L 100.0100, L501.9100, L500.2500, L505.5000 #### [facility] [address] [place], [address] Creatinine [Mass/Vol] 0.90 mg/dL Normal 0.70-1.30 [facility] Comment on above: Result Comment: The validity of the calculated GFR GFRAA in patients over 70 years has not been determined. Clinical correlation is essential. Performed By: #### L 100.0100, L501.9100, L500.2500, L505.5000 #### [facility] [address] [place], [address] EST GFR - AA 126 mL/min Normal >60 [facility] Comment on above: Result Comment: Afri can [place] GFR Calc Performed By: #### L 100.0100, L501.9100, L500.2500, L505.5000 #### [facility] [address] [place], [address] GAP 5 Normal 5-15 [facility] Comment on above: Performed By: #### L 100.0100, L501.9100, L500.2500, L505.5000 #### [facility] [address] [place], [address] GFR/1.73 sq M.predicted among non-blacks MDRD (S/P/Bld) [Vol rate/Area] 104 mL/min/{1.73_m2} Normal >60 [facility] Comment on above: Result Comment: Non- GFR Calc Performed By: #### L 100.0100, L501.9100, L500.2500, L505.5000 #### [facility] [address] [place], [address] Glucose [Mass/Vol] 119 mg/dL High 74-106 [facility] Comment on above: Result Comment: Fast ing Glucose result from 100 to 125 mg/dL suggests IMPAIRED HOMEOSTASIS per A.D.A. criteria. Performed By: #### L 100.0100, L501.9100, L500.2500, L505.5000 #### [facility] [address] [place], [address] Potassium [Moles/Vol] 4.6 mmol/L Normal 3.5-5.1 [facility] Comment on above: Performed By: #### L 100.0100, L501.9100, L500.2500, L505.5000 #### [facility] [address] [place], [address] Sodium [Moles/Vol] 140 mmol/L Normal 136-145 [facility] Comment on above: Performed By: #### L 100.0100, L501.9100, L500.2500, L505.5000 #### [facility] [address] [place], [address] Urea nitrogen [Mass/Vol] 17 mg/dL Normal 7-18 [facility] Comment on above: Performed By: #### L 100.0100, L501.9100, L500.2500, L505.5000 #### [facility] [address] [place], [address] Basophil percentageOrdered B y: Roberto Carlos Erickson on 02-20-2024 Basophils/100 WBC (Bld) 0.4 % 0-1 [facility] Chloride [Moles/Vol] 105 mmol/L 98-107 [facility] Eosinophils/100 WBC (Bld) 0.1 % 0-5 [facility] Glucose [Mass/Vol] 119 mg/dL 74-106 [facility] Comment on above: Fasting Glucose resu lt from 100 to 125 mg/dL suggests IMPAIRED HOMEOSTASIS per A.D.A. criteria. Hemoglobin (Bld) [Mass/Vol] 14.4 g/dL 13.0-16.5 [facility] Monocytes/100 WBC (Bld) 5.7 % 0-10 [facility] Neutrophils (Bld) [#/Vol] 7.3 10*3/uL 2.0-7.7 [facility] Neutrophils/100 WBC (Bld) 79.1 % 47-70 [facility] Potassium [Moles/Vol] 4.6 mmol/L 3.5-5.1 [facility] Sodium [Moles/Vol] 140 mmol/L 136-145 [facility] WBC (Bld) [#/Vol] 9.2 10*3/uL 4.4-11.0 [facility] CBC W/Diff, Automatedon 03- Absolute Lymph 1.34 X10 3/uL Normal 0.83-4.51 [facility] Comment on above: Performed By: #### L 100.0100, L501.9100, L500.2500, L505.5000 #### [facility] [address] [place], [address] Absolute Neut 7.3 X10 3/uL Normal 2.0-7.7 [facility] Comment on above: Performed By: #### L 100.0100, L501.9100, L500.2500, L505.5000 #### [facility] [address] [place], [address] Basophils/100 WBC (Bld) 0.4 % Normal 0-1 [facility] Comment on above: Performed By: #### L 100.0100, L501.9100, L500.2500, L505.5000 #### [facility] [address] [place], [address] Eosinophils/100 WBC (Bld) 0.1 % Normal 0-5 [facility] Comment on above: Performed By: #### L 100.0100, L501.9100, L500.2500, L505.5000 #### [facility] [address] [place], [address] Erythrocyte distribution width (RBC) [Ratio] 13.4 % Normal 11.6-14.6 [facility] Comment on above: Performed By: #### L 100.0100, L501.9100, L500.2500, L505.5000 #### [facility] [address] [place], [address] Hematocrit (Bld) [Volume fraction] 44.0 % Normal 40-54 [facility] Comment on above: Performed By: #### L 100.0100, L501.9100, L500.2500, L505.5000 #### [facility] [address] [place], [address] Hemoglobin (Bld) [Mass/Vol] 14.4 g/dL Normal 13.0-16.5 [facility] Comment on above: Performed By: #### L 100.0100, L501.9100, L500.2500, L505.5000 #### [facility] [address] [place], [address] IG% 0.200 Normal 0.0-0.9 [facility] Comment on above: Result Comment: IG% - Immature Granulocytes (promyelocytes, myelocytes and metamyelocytes) > 1% indicates that a LEFT SHIFT is Present. Performed By: #### L 100.0100, L501.9100, L500.2500, L505.5000 #### [facility] [address] [place], [address] Lymphocytes/100 WBC (Bld) 14.5 % Low 19-41 [facility] Comment on above: Performed By: #### L 100.0100, L501.9100, L500.2500, L505.5000 #### [facility] [address] [place], [address] MCH (RBC) [Entitic mass] 29.0 pg Normal 27.0-32.0 [facility] Comment on above: Performed By: #### L 100.0100, L501.9100, L500.2500, L505.5000 #### [facility] [address] [place], [address] MCHC (RBC) [Mass/Vol] 32.7 g/dL Normal 32-36 [facility] Comment on above: Performed By: #### L 100.0100, L501.9100, L500.2500, L505.5000 #### [facility] [address] [place], [address] MCV (RBC) [Entitic vol] 88.5 fL Normal 80-94 [facility] Comment on above: Performed By: #### L 100.0100, L501.9100, L500.2500, L505.5000 #### [facility] [address] [place], [address] Monocytes/100 WBC (Bld) 5.7 % Normal 0-10 [facility] Comment on above: Performed By: #### L 100.0100, L501.9100, L500.2500, L505.5000 #### [facility] [address] [place], [address] Neutrophils/100 WBC (Bld) 79.1 % High 47-70 [facility] Comment on above: Performed By: #### L 100.0100, L501.9100, L500.2500, L505.5000 #### [facility] [address] [place], [address] Nucleated RBC (Bld) [#/Vol] 0 10*3/uL Normal 0-5 [facility] Comment on above: Performed By: #### L 100.0100, L501.9100, L500.2500, L505.5000 #### [facility] [address] [place], [address] Platelet mean volume (Bld) [Entitic vol] 9.1 fL Normal 6.2-12.0 [facility] Comment on above: Performed By: #### L 100.0100, L501.9100, L500.2500, L505.5000 #### [facility] [address] [place], [address] Platelets (Bld) [#/Vol] 321 10*3/uL Normal 150-450 [facility] Comment on above: Performed By: #### L 100.0100, L501.9100, L500.2500, L505.5000 #### [facility] [address] [place], [address] RBC (Bld) [#/Vol] 4.97 10*6/uL Normal 4.6-6.2 [facility] Comment on above: Performed By: #### L 100.0100, L501.9100, L500.2500, L505.5000 #### [facility] [address] [place], [address] RDW SD 43.2 fl Normal 35.1-43.9 [facility] Comment on above: Performed By: #### L 100.0100, L501.9100, L500.2500, L505.5000 #### [facility] [address] [place], [address] WBC (Bld) [#/Vol] 9.2 10*3/uL Normal 4.4-11.0 [facility] Comment on above: Performed By: #### L 100.0100, L501.9100, L500.2500, L505.5000 #### [facility] [address] [place], [address] Determination of erythrocyte mean corpuscular volume (MCV)Ordered By: Roberto Carlos Erickson on 02-20-2024 MCV (RBC) [Entitic vol] 88.5 fL 80-94 [facility] Emergency Department Summary on 02-20-2024 Emergency Department Summary [facility] Medical Records Department [address] [place] [address] Emergency Department Summary 02/20/24 MR#: [id number] Acct: [id number] Name: DEAN WHITE Rep #: [id number] : 1990 33 From: Roberto Carlos Erickson MD PCP: Care Physician,No Primary Status:REG ER Location: ED HPI HPI - Psych History of Present Illness Chief Complaint: Suicidal Informant: patient Onset/Context/Timing Onset: Today Context: Sudden Onset Associated Symptoms Associated Symptoms - Psych: Positive for Suicidal Thoughts; Negative for Visual Hallucinations or Auditory Hallucinations Specific plan (suicidal thought): cut wrist w/ razor he was holding Narrative Narrative: 33-year-old male states he is upset about his . Apparently his is an alcoholic according to him, and he states tonight he got into the shower and she took that opportunity to leave. He does not expand upon this, when asked if she left for the evening or left him for good he states basically she is missing and just plain left. No one can get a hold of her, she will not answer her phone, including her daughter who also left the house, was living with them. As result of all of this, states he wanted to cut his wrist with a razor blade but instead I seed cone picker the phone and called for help and now I am here. PFSH PFSH Medical History no medical history no medical history Home Medications NK 02/20/24 [History Last Taken Unknown] Allergy/AdvReac Type Severity Reaction Status Date / Time grass pollen Allergy Hives Verified 02/20/24 22:14 Surgical History no surgical history Social History (Updated 02/20/24 @ 22:[address] Roberto Carlos Erickson MD) Smoking Status: Current some day smoker tobacco type: cigarettes substance use type: marijuana ROS ROS ED Constitutional Constitutional ED: Denies chills or fever(s) Eyes Eyes: Denies change in vision or diplopia ENT ENT ED: Denies rhinorrhea or sore throat Cardiovascular Cardiovascular: Denies chest pain or palpitations Respiratory/Chest Respiratory/Chest: Denies cough or dyspnea Gastrointestinal Gastrointestinal: Denies abdominal pain, diarrhea, nausea or vomiting Genitourinary Genitourinary ED: Denies dysuria or hematuria Musculoskeletal Musculoskeletal: Denies back pain or neck pain Integumentary Denies abscess or rash Neurologic Neurologic: Denies headache(s), paresthesias or weakness Psychiatric Psychiatric: Reports anxiety, depression, suicidal ideation and suicidal thoughts; Denies homicidal ideation EXAM Physical Exam Const Vital Signs: 02/20/24 22:14 02/20/24 23:14 02/20/24 23:23 Temperature 98.3 F Temperature Source Oral Pulse Rate 79 74 72 Respiratory Rate 18 18 Blood Pressure 137/84 H 134/74 H Blood Pressure Mean 101 94 Pulse Ox 97 97 Oxygen Delivery Method Room Air Room Air Positive well nourished and well developed General Appearance ED: well developed and NAD HEENT Reports moist mucous membranes normocephalic and atraumatic Eyes PERRL and EOMs intact bilaterally General Eye ED: Negative for scleral icterus Neck no lymphadenopathy and supple Resp normal respiratory effort and clear to auscultation bilaterally Cardio no murmurs Rate: regular rate Rhythm: regular rhythm GI non-tender and non-distended Auscultation: normoactive bowel sounds Palpation: soft Back/Spine no CVA tenderness and normal ROM Extremity normal to inspection General Extremety ED: Negative for edema General Extremity: Negative for edema Neuro oriented x3, CN's II-XII intact bilaterally, no sensory deficits noted and gait normal Sensorium / Orientation: alert Motor Exam: strength 5/5 throughout Psych mental status grossly normal, thought process normal, cooperative, activity/motor behavior normal and denies homicidal ideation Mood Affect: depressed and anxious Thought Content: suicidality Insight: insight good Judgement: poor Skin Lesions: no lesions Rashes: no rashes MDM MDM MDM Narrative Medical decision making narrative: Given the patient's history he is given a sitter. Labs obtained as well as toxicology positive for marijuana only which he admits to using, he is otherwise medically cleared for psychiatric evaluation. Crisis contacted to evaluate. Patient cooperative. Crisis agrees that the patient has severe impulsivity issues, and based mostly upon this, recommends placement which I am not opposed to. Lab Data Attestation: I reviewed the patient's lab results. Labs: Laboratory Results - last 24 hr 02/20/24 22:41 WBC 9.2 RBC 4.97 Hgb 14.4 Hct 44.0 MCV 88.5 MCH 29.0 MCHC 32.7 RDW Std Deviation 43.2 RDW Coeff of Arielle 13.4 Plt Count 321 MPV 9.1 Immature Gran % (Auto) 0.200 Neut (more content not included)... Normal [facility] Erythrocyte distribution wid th ratioOrdered By: Roberto Carlos Erickson on 02-20-2024 Erythrocyte distribution width (RBC) [Ratio] 13.4 % 11.6-14.6 [facility] Erythrocyte distribution wid th standard deviationOrdered By: Roberto Carlos Erickson on 02-20-2024 Erythrocyte distribution width (RBC) [Entitic vol] 43.2 fL 35.1-43.9 [facility] Hematocrit Auto (Bld) [Volum e fraction]Ordered By: Roberto Carlos Erickson on 02-20-2024 Hematocrit (Bld) [Volume fraction] 44.0 % 40-54 [facility] Immature granulocytes/100 WB C Auto (Bld)Ordered By: Roberto Carlos Erickson on 02-20-2024 Immature granulocytes/100 WBC (Bld) 0.200 % 0.0-0.9 [facility] Comment on above: IG% - Immature Granu locytes (promyelocytes, myelocytes and metamyelocytes) > 1% indicates that a LEFT SHIFT is Present. Laboratory - Chemistry and C hemistry - challengeOrdered By: Roberto Carlos Erickson on 02-20-2024 CO2 [Moles/Vol] 30.0 mmol/L 21.0-32.0 [facility] Urea nitrogen/Creatinine [Mass ratio] 18.9 mg/mg 10-20 [facility] - Drug toxicology Ordered By: Roberto Carlos Erickson on 02-20-2024 Amphetamines Ql (U) Negative <1000 ng/mL [facility] Benzodiazepines Ql (U) Negative < 200 ng/mL [facility] Cannabinoids Screen Ql (U) Positive < 50 ng/mL [facility] Cocaine Ql (U) Negative < 300 ng/mL [facility] Opiates Ql (U) Negative < 300 ng/mL [facility] - Hematology and Cell countsOrdered By: Roberto Carlos Erickson on 02-20-2024 MCH (RBC) [Entitic mass] 29.0 pg 27.0-32.0 [facility] MCHC (RBC) [Mass/Vol] 32.7 g/dL 32-36 [facility] Nucleated RBC/100 WBC (Bld) [Ratio] 0 % 0-5 [facility] Platelet mean volume (Bld) [Entitic vol] 9.1 fL 6.2-12.0 [facility] Platelets (Bld) [#/Vol] 321 10*3/uL 150-450 [facility] No Panel InformationOrdered By: Roberto Carlos Erickson on 02-20-2024 Estimated GFR (MDRD) Amer 126 mL/min >60 [facility] Comment on above: GFR Calc Estimated GFR (MDRD) Non-Af Amer 104 mL/min >60 [facility] Comment on above: Non- GFR Calc Ethyl Alcohol Level < 3.0 mg/dL [facility] Comment on above: The serum:whole bloo d ethanol ratio is approximately 1.14and varies slightly with hematocrit. Medical Alcohol reference interval and critical value innon-tolerant individuals; 50 - 100 Impairment 100 Intoxication 100 - 250 Severe Poisoning 250 - 400 Deep/possible fatal coma MDMA (Ecstasy) Screen Negative < 500 ng/mL [facility] Urine Barbiturates Screen Negative < 200 ng/mL [facility] Urine Drug Screen Comment [facility] Comment on above: CONFIRMATORY TESTING FOR ALL POSITIVE URINE DRUG SCREENRESULTS WILL ONLY BE SENT OUT UPON PHYSICIAN ORDER. [facility]IST[facility] Urine Drug Screen methods provide only preliminaryanalytical test results. A more specific alternate chemicalmethod must be used in order to obtain a confirmedanalytical result. Gas chromatography/mass spectrometery(GC/MS) is the preferred confirmatory method. Clinicalconsideration and professional judgement should be appliedto any drug of abuse test result, particularly whenpreliminary positive results are used. URINE TCA TESTING MUST BE ORDERED SEPARATELY. USE TESTMNEMONIC: [facility] Urine Methadone Screen Negative < 300 ng/mL [facility] RBC Auto (Bld) [#/Vol]Ordere d By: Roberto Carlos Erickson on 02-20-2024 RBC (Bld) [#/Vol] 4.97 10*6/uL 4.6-6.2 [facility] Serum or plasma calcium isaak urement (mass/volume)Ordered By: Roberto Carlos Erickson on 02-20-2024 Calcium [Mass/Vol] 9.2 mg/dL 8.5-10.1 [facility] Serum or plasma creatinine m easurement (mass/volume)Ordered By: Roberto Carlos Erickson on 02-20-2024 Creatinine [Mass/Vol] 0.90 mg/dL 0.70-1.30 [facility] Comment on above: The validity of the calculated GFR & GFRAA in patients over 70 years has not been determined. Clinical correlation is essential. Serum or plasma urea nitroge n measurement (mass/volume)Ordered By: Roberto Carlos Erickson on 02-20-2024 Urea nitrogen [Mass/Vol] 17 mg/dL 7-18 [facility] Thin prep Papanicolaou smear with manual screeningOrdered By: Roberto Carlos Erickson on 02-20-2024 Thin prep Papanicolaou smear with manual screening 5 5-15 [facility] Urine Drug Screen (VISTA)on 02-20-2024 AMPHETAMINES Negative Normal <1000 ng/mL [facility] Comment on above: Performed By: #### L 100.0100, L501.9100, L500.2500, L505.5000 #### [facility] [address] [place] [address] BARBITIURATES Negative Normal < 200 ng/mL [facility] Comment on above: Performed By: #### L 100.0100, L501.9100, L500.2500, L505.5000 #### [facility] [address] [place] [address] BENZODIAZIPINE Negative Normal < 200 ng/mL [facility] Comment on above: Performed By: #### L 100.0100, L501.9100, L500.2500, L505.5000 #### [facility] [address] [place] [address] COCAINE Negative Normal < 300 ng/mL [facility] Comment on above: Performed By: #### L 100.0100, L501.9100, L500.2500, L505.5000 #### [facility] [address] [place] [address] ECSTACY Negative Normal < 500 ng/mL [facility] Comment on above: Performed By: #### L 100.0100, L501.9100, L500.2500, L505.5000 #### [facility] [address] [place] [address] METHADONE Negative Normal < 300 ng/mL [facility] Comment on above: Performed By: #### L 100.0100, L501.9100, L500.2500, L505.5000 #### [facility] [address] [place] [address] OPIATES Negative Normal < 300 ng/mL [facility] Comment on above: Performed By: #### L 100.0100, L501.9100, L500.2500, L505.5000 #### [facility] [address] [place], [address] PCP Negative Normal < 25 ng/mL [facility] Comment on above: Performed By: #### L 100.0100, L501.9100, L500.2500, L505.5000 #### [facility] [address] [place], [address] THC Positive Abnormal < 50 ng/mL [facility] Comment on above: Performed By: #### L 100.0100, L501.9100, L500.2500, L505.5000 #### [facility] [address] [facility] [address] VISTA UDS PH 5 Normal [facility] Comment on above: Performed By: #### L 100.0100, L501.9100, L500.2500, L505.5000 #### [facility] [address] [place], [address] Urine phencyclidine (PCP) de tectionOrdered By: Roberto Carlos Erickson on 02-20-2024 Phencyclidine Ql (U) Negative < 25 ng/mL [facility] STREP A MOLECULAR (POC)on Procedural Control Valid [facility] Strep A (POCT) Negative Negative [facility] LABORATORYOrdered By: Alyssa Cannon on 10-26-2021 ADMITTED TO INTENSIVE CARE UNIT FOR CONDITION OF INTEREST:FIND:PT:^PAT IENT:ORD: No (10/26/21 4:54 PM) Invalid Interpretation Code AO Auto Urine SS EMPLOYED IN A HEALTHCARE SETTING:FIND:PT:^PRINCE ENT:ORD: No (10/26/21 4:54 PM) Invalid Interpretation Code AO Auto Urine SS FIRST TEST FOR CONDITION OF INTEREST:FIND:PT:^PAT IENT:ORD: Unknown (10/26/21 4:54 PM) Invalid Interpretation Code AO Auto Urine SS HAS SYMPTOMS RELATED TO CONDITION OF INTEREST:FIND:PT:^PAT IENT:ORD: Yes (10/26/21 4:54 PM) Invalid Interpretation Code AO Auto Urine SS Illness or injury onset date and time [id number] Invalid Interpretation Code AO Auto Urine SS Patient was hospitalized because of this condition No (10/26/21 4:54 PM) Invalid Interpretation Code AO Auto Urine SS status Not (10/26/21 4:54 PM) Invalid Interpretation Code AO Auto Urine SS RESIDES IN A CONGREGATE CARE SETTING:FIND:PT:^PRINCE ENT:ORD: No (10/26/21 4:54 PM) Invalid Interpretation Code AO Auto Urine SS SARS-CoV-2 (COVID-19) RNA TON+probe Ql (Resp) Positive *ABN* (10/26/21 4:54 PM) Invalid Interpretation Code Negative AO Auto Urine SS SARS-CoV-2 (COVID-19) RNA TON+probe Ql (Unsp spec) Positive results are indicative of the presence of SARS-CoV-2 RNA; clinical correlation with patient history and other diagnostic information is necessary to determine patient infection status. Positive results do not rule out bacterial infection or co-infection with other viruses. The agent detected may not be the definite cause of disease. Laboratories within the [place] and its territories are required to report all positive results to the appropriate public health authorities.Detection of analyte target(s) does not imply that the corresponding virus(es) are infectious or are the causative agents for clinical symptoms.There is a risk of false positive values resulting from cross-contamination by target organisms, their nucleic acids or amplified product, or from non-specific signals in the assay.RADHA SARS-CoV-2 Assay is a Real-Time reverse-transcriptase polymerase chain reaction (RT-PCR) based qualitative in vitro diagnostic test intended for the qualitative detection of nucleic acid from the SARS-CoV-2 in nasopharyngeal swab specimens collected from individuals suspected of COVID-19 by their healthcare provider. Testing is limited to laboratories certified under the Clinical Laboratory Improvement Amendments of 1988 (CLIA), 42 U.S.C. 263a, to perform moderate and high complexity tests. Invalid Interpretation Code AO Auto Urine SS Vital Signs Date Time Vital Sign Value Performing Clinician Facility 12-26-2024 10:53-0500 Body temperature 101.61 [degF] Shaheen Osuna APRN.OLIVING MACHINE OPERATOR Work Phone: [facility] 12-26-2024 10:53-0500 Body weight 86 kg Shaheen Osuna ASSISTANT FIELD HOCKEY COACH.OLIVING MACHINE OPERATOR Work Phone: [facility] 12-26-2024 10:53-0500 Diastolic blood pressure 72 mm[Hg] Shaheen Osuna ASSISTANT FIELD HOCKEY COACH.OLIVING MACHINE OPERATOR Work Phone: [facility] 12-26-2024 10:53-0500 Heart rate 89 /min Shaheen Osuna ASSISTANT FIELD HOCKEY COACH.OLIVING MACHINE OPERATOR Work Phone: [facility] 12-26-2024 10:53-0500 Respiratory rate 20 /min Shaheen Osuna ASSISTANT FIELD HOCKEY COACH.OLIVING MACHINE OPERATOR Work Phone: [facility] 12-26-2024 10:53-0500 SaO2% (BldA) [Mass fraction] 99 % Shaheen Osuna ASSISTANT FIELD HOCKEY COACH.OLIVING MACHINE OPERATOR Work Phone: [facility] 12-26-2024 10:53-0500 Systolic blood pressure 120 mm[Hg] Shaheen Osuna ASSISTANT FIELD HOCKEY COACH.OLIVING MACHINE OPERATOR Work Phone: [facility] 11-15-2024 20:00-0500 Body weight 86.[address] IRVIN SCANLON DO [facility] 11-15-2024 20:00-0500 Diastolic Blood Pressure Non-Invasive 83 mm[Hg] DR IRVIN SCANLON DO [facility] 11-15-2024 20:00-0500 Heart rate 84 /min DR IRVIN SCANLON DO [facility] 11-15-2024 20:00-0500 Respiratory rate 18 /min DR IRVIN SCANLON DO [facility] 11-15-2024 20:00-0500 Systolic Blood Pressure Non-Invasive 129 mm[Hg] DR IRVIN SCANLON DO [facility] 02-21-2024 09:14-0400 Body temperature 99 [degF] [facility] 02-21-2024 09:14-0400 Diastolic blood pressure 64 mm[Hg] [facility] 02-21-2024 09:14-0400 Heart rate 74 /min [facility] 02-21-2024 09:14-0400 Respiratory rate 16 /min [facility] 02-21-2024 09:14-0400 SaO2% (BldA) [Mass fraction] 100 % [facility] 02-21-2024 09:14-0400 Systolic blood pressure 138 mm[Hg] [facility] 02-20-2024 22:14-0400 Body height 172.72 cm [facility] 08-27-2023 10:37-0400 Body height 172.72 cm [facility] 08-27-2023 10:37-0400 Body mass index (BMI) [Ratio] 27.6 kg/m2 [facility] 08-27-2023 10:37-0400 Body temperature 97.2 [degF] [facility] 08-27-2023 10:37-0400 Body weight 82.55 kg [facility] 08-27-2023 10:37-0400 Diastolic blood pressure 100 mm[Hg] [facility] 08-27-2023 10:37-0400 Heart rate 87 /min [facility] 08-27-2023 10:37-0400 Respiratory rate 18 /min [facility] 08-27-2023 10:37-0400 SaO2% (BldA) [Mass fraction] 100 % [facility] 08-27-2023 10:37-0400 Systolic blood pressure 153 mm[Hg] [facility] 06-27-2023 16:07-0400 Body temperature 99.32 [degF] HERBERT GRAY MD [facility] 06-27-2023 16:07-0400 Diastolic Blood Pressure Non-Invasive 76 1 HERBERT GRAY MD [facility] 06-27-2023 16:07-0400 Heart rate 80 /min HERBERT GRAY MD [facility] 06-27-2023 16:07-0400 Respiratory rate 20 /min HERBERT GRAY MD [facility] 06-27-2023 16:07-0400 Systolic Blood Pressure Non-Invasive 120 1 HERBERT GRAY MD [facility] 07-08-2022 10:49-0400 Body temperature 97.3 [degF] Rina Bravo ASSISTANT FIELD HOCKEY COACH.OLIVING MACHINE OPERATOR Work Phone: [facility] 07-08-2022 10:49-0400 Body weight 91.08 kg Rina Bravo ASSISTANT FIELD HOCKEY COACH.OLIVING MACHINE OPERATOR Work Phone: [facility] 07-08-2022 10:49-0400 Diastolic blood pressure 82 mm[Hg] Rina Bravo ASSISTANT FIELD HOCKEY COACH.OLIVING MACHINE OPERATOR Work Phone: [facility] 07-08-2022 10:49-0400 Heart rate 64 /min Rina Bravo ASSISTANT FIELD HOCKEY COACH.OLIVING MACHINE OPERATOR Work Phone: [facility] 07-08-2022 10:49-0400 Respiratory rate 16 /min Rina Bravo ASSISTANT FIELD HOCKEY COACH.OLIVING MACHINE OPERATOR Work Phone: [facility] 07-08-2022 10:49-0400 SaO2% (BldA) [Mass fraction] 98 % Rina Bravo ASSISTANT FIELD HOCKEY COACH.OLIVING MACHINE OPERATOR Work Phone: [facility] 07-08-2022 10:49-0400 Systolic blood pressure 122 mm[Hg] Rina Bravo ASSISTANT FIELD HOCKEY COACH.OLIVING MACHINE OPERATOR Work Phone: [facility] 06-11-2022 09:35-0400 Body temperature 97.52 [degF] DR MARION TRAYLOR MD [facility] 06-11-2022 09:35-0400 Diastolic blood pressure 79 mm[Hg] DR MARION TRAYLOR MD [facility] 06-11-2022 09:35-0400 Heart rate 53 /min DR MARION TRAYLOR MD [facility] 06-11-2022 09:35-0400 Respiratory rate 18 /min DR MARION TRAYLOR MD [facility] 06-11-2022 09:35-0400 Systolic blood pressure 142 mm[Hg] DR MARION TRAYLOR MD [facility] 04-26-2022 11:20-0400 Body temperature 98.6 [degF] Mariam Kraft APRN.OLIVING MACHINE OPERATOR Work Phone: [facility] 04-26-2022 11:20-0400 Body weight 91.17 kg Mariam Kraft APRN.OLIVING MACHINE OPERATOR Work Phone: [facility] 04-26-2022 11:20-0400 Diastolic blood pressure 80 mm[Hg] Mariam Kraft APRN.OLIVING MACHINE OPERATOR Work Phone: [facility] 04-26-2022 11:20-0400 Heart rate 100 /min Mariam Kraft APRN.OLIVING MACHINE OPERATOR Work Phone: [facility] 04-26-2022 11:20-0400 Respiratory rate 22 /min Mariam Kraft APRN.OLIVING MACHINE OPERATOR Work Phone: [facility] 04-26-2022 11:20-0400 SaO2% (BldA) [Mass fraction] 99 % Mariam Kraft APRN.OLIVING MACHINE OPERATOR Work Phone: [facility] 04-26-2022 11:20-0400 Systolic blood pressure 124 mm[Hg] Mariam Kraft APRN.OLIVING MACHINE OPERATOR Work Phone: [facility] Encounters Encounter Date Encounter Type Care Provider Facility Start: 12-30-2024 End: 12-30-2024 Telephone encounter Shaheen Osuna APRN.OLIVING MACHINE OPERATOR Work Phone: [facility] Comment on above: Patient Question Start: 12-26-2024 End: 12-26-2024 ambulatory Facility:[facility] Start: 12-26-2024 End: 12-26-2024 Patient encounter procedure Shaheen Osuna APRN.OLIVING MACHINE OPERATOR Work Phone: [facility] Comment on above: Acute otitis media, left (Primary Dx); Flu-like symptoms Start: 11-15-2024 End: 11-15-2024 Emergency department patient visit DR IRVIN SCANLON DO [facility] Start: 10-21-2024 End: 10-21-2024 Emergency department patient visit Bartolo Coffman Facility:[facility] Start: 02-20-2024 End: 02-21-2024 Emergency department patient visit [facility] Work Phone: Start: 08-27-2023 End: 08-27-2023 Emergency department patient visit [facility] Work Phone: Start: 06-27-2023 End: 06-27-2023 Emergency department patient visit HERBERT GRAY MD Facility:[facility] Start: 06-27-2023 End: 06-27-2023 Emergency department patient visit HERBERT GRAY MD [facility] Start: 07-08-2022 End: 07-08-2022 Patient encounter procedure Rina Bravo ASSISTANT FIELD HOCKEY COACH.OLIVING MACHINE OPERATOR Work Phone: [facility] Comment on above: Pain, dental (Primar y Dx) Start: 06-11-2022 End: 06-11-2022 Emergency department patient visit DR MARION TRAYLOR MD [facility] Start: 04-27-2022 Telephone encounter Jennifer Engel APRN.OLIVING MACHINE OPERATOR Work Phone: [facility] Comment on above: Results Start: 04-26-2022 End: 04-26-2022 Patient encounter procedure Mariam Kraft APRN.OLIVING MACHINE OPERATOR Work Phone: [facility] Comment on above: Sore throat (Primary Dx); Cough; Non-recurrent acute suppurative otitis media of left ear without spontaneous rupture of tympanic membrane Start: 10-26-2021 End: 10-30-2021 Outreach Lab KALEY MONZON APRN-OLIVING MACHINE OPERATOR [facility] Procedures Date Procedure Procedure Detail Performing Clinician Start: 04-26-2022 STREP A MOLECULAR (POC) Mariam Kraft APRN.OLIVING MACHINE OPERATOR Work Phone: None (qualifier value) KALEY MONZON ASSISTANT FIELD HOCKEY COACH-OLIVING MACHINE OPERATOR Plan of Treatment Date Care Activity Detail Author Start: 07-03-2027 Urine microalbumin profile DTaP,Tdap,Td Vaccine (3 - Td or Tdap) [facility] Start: 07-28-2024 Covid-19 Vaccine ( season) Covid-19 Vaccine () [facility] Start: 07-28-2024 Influenza vaccination Influenza Vacc ine (#1) [facility] Start: 02-21-2024 [facility] Start: 02-20-2024 End: 02-20-2024 [facility] Start: 02-20-2024 Referral to service [facility] Start: 02-20-2024 Suicide precautions [facility] Start: 07-28-2022 Influenza vaccination [facility] Start: 04-26-2022 End: 05-10-2022 Influenza virus A and B RNA and SARS-CoV-2 (COVID-19) N gene panel - Respiratory specimen by TON with probe detection COVID WITH FLUA+B, ROUTINE Microbiology Routine Sore throat Cough Expected: 04/26/2022, Expires: 05/10/2022 [facility] Work Phone: Comment on above: Expected: 04/26/2022 , Expires: 05/10/2022 Start: 2010 Hepatitis B Vaccine (1 of 3 - 19+ 3-dose series) Hepatitis B Vaccine (1 of 3 - 19+ 3-dose series) [facility] Start: 2010 Urine microalbumin profile DTAP,TDAP,TD (1 - Tdap) [facility] Start: 2009 Anxiety Screening Anxiety Screening [facility] Start: 2009 Depression Screening Depression Scre ening [facility] Start: 2009 HEPATITIS C SCREENING HEPATITIS C [facility] Start: 2009 Hepatitis C screening Hepatitis C [facility] Start: 2009 HIV SCREENING HIV SCREENING [facility] Start: 2009 HIV screening HIV Screening [facility] Start: 2003 Adult depression screening assessment DEPRESSION SCREENING [facility] Start: 1996 COVID-19 VACCINE (#1) COVID-19 VACCI NE (#1) [facility] Start: 05-19-1992 COVID-19 VACCINE (#1) COVID-19 VACCI NE (#1) [facility] Start: 1991 HEPATITIS B (1 of 3 - 3-dose series) HEPATITIS B (1 of 3 - 3-dose series) [facility] Patient Education ED Dental Pain [facility] Work Phone: Patient referral [facility] Work Phone: Immunizations Immunization Date Immunization Notes Care Provider Ivan diallo 07-03-2017 tetanus toxoid, redu ludy diphtheria toxoid, and acellular pertussis vaccine, adsorbed [facility] Payers Date Payer Category Payer Self-pay [id number] 2023 Unknown [id number] 2023 Unknown [id number] 2022 Unknown [employer] PPO [id number] 2022-Present [phone] [address] [place] [address] PPO [id number] 2022 Unknown [id number] 2015 Private Health Insurance [employer] [id number] 1990 Unknown [id number] 1990 Unknown [id number] Unknown [id number] Unknown [id number] Social History Date Type Detail Facility Start: 11-07-2019 Ex-smoker (finding) [facility] Start: 1990 Sex Assigned At Male A [facility] Start: 07-08-2022 [facility] Start: 04-26-2022 End: 12-26-2024 Alcohol intake Current drinker of alcohol (finding) [facility] Start: 1990 Sex Assigned At Not on file C [facility] Start: 04-16-2022 End: 07-08-2022 Exposure to SARS-CoV-2 (event) Not sure [facility] Work Phone: History of tobacco use Passive smoker [facility] Start: 07-08-2022 Tobacco use and exposure Smoke less tobacco non-user [facility] Start: 08-27-2023 End: 02-20-2024 Tobacco smoking status IAIS Unknown if ever smoked [facility] Start: 12-14-2015 None [facility] Start: 12-14-2015 Spouse/ Signif icant Other;With Family [facility] Sexual Orientation [facility] Start: 05-22-2019 Sex Male (finding) [facility] Start: 12-26-2024 History of Social function [facility] Start: 12-26-2024 Tobacco use panel [facility] Functional Status Date Assessment Result Facility 06-27-2023 Functional Status ID band on, Call device within reach, Bed in low position, Wheels locked [facility] 06-11-2022 Functional Status ID band on, Call device within reach, Bed in low position, Wheels locked, Upper/Half-Length side-rails up, Phone within reach, personal items within reach, Assistive devices within reach, Toileting device within reach, Bedside Cart Locked, Safety level maintained [facility] Mental Status Date Assessment Result Facility 06-27-2023 Mental Status Orientation Oriented x 4 [facility] 06-11-2022 Mental Status Oriented x 4 [facility] Clinical Notes 01-22-2021 to 12-30-2024 Telephone Encounter - Michelle Garay MA - 12/30/2024 5:23 PM ESTTelephone Encounter - Michelle Garay MA - 12/30/2024 5:23 PM ESTTelephone Encounter - Beth Babb RN - 12/30/2024 2:52 PM EST Note Date & Type Note Facility 12-30-2024 Telephone encount er Note Pt was notified of the results. Pt verbalized understanding. Michelle Garay MA [facility] 12-30-2024 Miscellaneous Notes Formattin g of this note might be different from the original. Pt was notified of the results. Pt verbalized understanding. Michelle Garay MA Patient calls and states that he was Covid and Flu tested on 12/26/2024. Patient is asking about results from testing. Beth Babb RN documented in this encounter [facility] 12-30-2024 Telephone encount er Note Patient calls and states that he was Covid and Flu tested on 12/26/2024. Patient is asking about results from testing. Beth Babb RN [facility] 12-26-2024 Note HNO ID: [id number] Author: SHAHEEN OSUNA APRN.OLIVING MACHINE OPERATOR Service: ? Author Type: Nurse Practitioner Type: Progress Notes Filed: 12/26/2024 11:19 Note Text: Subjective HPI HPI Dean White is a 34 year old male who presents today for CC of cough, congestion, fever, ear pain. This started 3 days ago. Has tried otc medication for relief. Symptoms are worsened by noting. Risk factors sick exposures. smoker. .Patient presents with: Fever: Bodyaches, chills, congestion, cough, sore throat, vomiting x 3 days Ear Pain: Bilat ear pain, L worse x 3 days PAST MEDICAL HISTORY Diagnosis Date Allergic rhinitis, cause unspecified PAST SURGICAL HISTORY Procedure Laterality Date NONE ALLERGIES Patient has no known allergies. MEDICATIONS amoxicillin-clavulanate potassium (AUGMENTIN) 875-125 mg per tablet Take 1 tablet by mouth two times a day for 7 days. LORATADINE 10 MG TAB Take one(1) tablet daily prn allergy symptoms (Patient not taking: Reported on 07/08/2022) KETOTIFEN FUMARATE 0.025 % EYE DROPS 1 drop in afected eye(s) every 8 to 12 hours as needed (Patient not taking: No sig reported) fluticasone propionate(FLONASE 50 MCG/ACTUATION NASAL SPRAY) 1 spray per nostril once a day prn nasal allergy symptoms (Patient not taking: No sig reported) FAMILY HISTORY Problem Relation Age of Onset Diabetes Maternal Grandfather Cancer Maternal Grandmother breast and lung cancer non smoker Social History Tobacco Use Smoking status: Never Passive exposure: Yes Smokeless tobacco: Never Substance Use Topics Alcohol use: Yes Drug use: Yes Types: Marijuana Review of Systems Constitutional: Positive for fever. HENT: Positive for congestion and ear pain. Negative for ear discharge, nosebleeds and sore throat. Respiratory: Positive for cough. Negative for shortness of breath and wheezing. Musculoskeletal: Negative for neck pain. Skin: Negative for itching and rash. Objective Blood pressure 120/72, pulse 89, temperature (!) 38.7 ?C (101.6 ?F), resp. rate 20, weight 86 kg (189 lb 9.5 oz), SpO2 99%. Physical Exam Constitutional: General: He is not in acute distress. Appearance: He is not toxic-appearing or diaphoretic. HENT: Head: Normocephalic and atraumatic. Right Ear: Hearing, tympanic membrane, ear canal and external ear normal. Left Ear: Hearing, ear canal and external ear normal. Tympanic membrane is erythematous (mild) and bulging. Tympanic membrane is not perforated. Nose: Nose normal. Mouth/Throat: Pharynx: Uvula midline. No pharyngeal swelling, oropharyngeal exudate, posterior oropharyngeal erythema or uvula swelling. Eyes: General: Lids are normal. No scleral icterus. Right eye: No discharge. Left eye: No discharge. Conjunctiva/sclera: Conjunctivae normal. Pupils: Pupils are equal, round, and reactive to light. Neck: Trachea: Trachea normal. Cardiovascular: Rate and Rhythm: Normal rate and regular rhythm. Heart sounds: Normal heart sounds. Pulmonary: Effort: Pulmonary effort is normal. Breath sounds: Normal breath sounds. Musculoskeletal: Cervical back: Normal range of motion and neck supple. Lymphadenopathy: Cervical: No cervical adenopathy. Right cervical: No superficial cervical adenopathy. Left cervical: No superficial cervical adenopathy. Skin: Findings: No rash. Neurological: Mental Status: He is alert and oriented to person, place, and time. ASSESSMENT/PLAN: 1. Acute otitis media, left - ICD9: 382.9, ICD10: H66.92 (primary diagnosis) Otc management, hold atb, if worsening s/s take atb - Supportive care with plenty of fluids, rest, and analgesia prn. - Follow up in 3-5 days if symptoms persist or worsen. - AMOXICILLIN 875 MG-POTASSIUM CLAVULANATE 125 MG TABLET 2. Flu-like symptoms - ICD9: 780.99, ICD10: R68.89 -duration 3 days, no test/treatment indicated -given educational handout -push fluids/rest -discussed likely course/contagiousness -discussed conservative measures -f/u in 3-5 days if symptoms persist/worsen Shaheen Osuna APRN.OLIVING MACHINE OPERATOR [facility] 12-26-2024 History of Presen t illness Narrative Subjective HPI HPI Dean White is a 34 year old male who presents today for CC of cough, congestion, fever, ear pain. This started 3 days ago. Has tried otc medication for relief. Symptoms are worsened by noting. Risk factors sick exposures. smoker. .Patient presents with: Fever: Bodyaches, chills, congestion, cough, sore throat, vomiting x 3 days Ear Pain: Bilat ear pain, L worse x 3 days PAST MEDICAL HISTORY Diagnosis Date Allergic rhinitis, cause unspecified PAST SURGICAL HISTORY Procedure Laterality Date NONE ALLERGIES Patient has no known allergies. MEDICATIONS amoxicillin-clavulanate potassium (AUGMENTIN) 875-125 mg per tablet Take 1 tablet by mouth two times a day for 7 days. LORATADINE 10 MG TAB Take one(1) tablet daily prn allergy symptoms (Patient not taking: Reported on 07/08/2022) KETOTIFEN FUMARATE 0.025 % EYE DROPS 1 drop in afected eye(s) every 8 to 12 hours as needed (Patient not taking: No sig reported) fluticasone propionate(FLONASE 50 MCG/ACTUATION NASAL SPRAY) 1 spray per nostril once a day prn nasal allergy symptoms (Patient not taking: No sig reported) FAMILY HISTORY Problem Relation Age of Onset Diabetes Maternal Grandfather Cancer Maternal Grandmother breast and lung cancer non smoker Social History Tobacco Use Smoking status: Never Passive exposure: Yes Smokeless tobacco: Never Substance Use Topics Alcohol use: Yes Drug use: Yes Types: Marijuana Review of Systems Constitutional: Positive for fever. HENT: Positive for congestion and ear pain. Negative for ear discharge, nosebleeds and sore throat. Respiratory: Positive for cough. Negative for shortness of breath and wheezing. Musculoskeletal: Negative for neck pain. Skin: Negative for itching and rash. Objective Blood pressure 120/72, pulse 89, temperature (!) 38.7 C (101.6 F), resp. rate 20, weight 86 kg (189 lb 9.5 oz), SpO2 99%. Physical Exam Constitutional: General: He is not in acute distress. Appearance: He is not toxic-appearing or diaphoretic. HENT: Head: Normocephalic and atraumatic. Right Ear: Hearing, tympanic membrane, ear canal and external ear normal. Left Ear: Hearing, ear canal and external ear normal. Tympanic membrane is erythematous (mild) and bulging. Tympanic membrane is not perforated. Nose: Nose normal. Mouth/Throat: Pharynx: Uvula midline. No pharyngeal swelling, oropharyngeal exudate, posterior oropharyngeal erythema or uvula swelling. Eyes: General: Lids are normal. No scleral icterus. Right eye: No discharge. Left eye: No discharge. Conjunctiva/sclera: Conjunctivae normal. Pupils: Pupils are equal, round, and reactive to light. Neck: Trachea: Trachea normal. Cardiovascular: Rate and Rhythm: Normal rate and regular rhythm. Heart sounds: Normal heart sounds. Pulmonary: Effort: Pulmonary effort is normal. Breath sounds: Normal breath sounds. Musculoskeletal: Cervical back: Normal range of motion and neck supple. Lymphadenopathy: Cervical: No cervical adenopathy. Right cervical: No superficial cervical adenopathy. Left cervical: No superficial cervical adenopathy. Skin: Findings: No rash. Neurological: Mental Status: He is alert and oriented to person, place, and time. ASSESSMENT/PLAN: 1. Acute otitis media, left - ICD9: 382.9, ICD10: H66.92 (primary diagnosis) Otc management, hold atb, if worsening s/s take atb - Supportive care with plenty of fluids, rest, and analgesia prn. - Follow up in 3-5 days if symptoms persist or worsen. - AMOXICILLIN 875 MG-POTASSIUM CLAVULANATE 125 MG TABLET 2. Flu-like symptoms - ICD9: 780.99, ICD10: R68.89 -duration 3 days, no test/treatment indicated -given educational handout -push fluids/rest -discussed likely course/contagiousness -discussed conservative measures -f/u in 3-5 days if symptoms persist/worsen Shaheen Osuna APRN.OLIVING MACHINE OPERATOR documented in this encounter [facility] 02-21-2024 Discharge summary Note Date/Time February 20, 2024 10:30pm [facility] Medical Records Department [address] [place] [id number] Emergency Department Summary 02/20/24 MR#: [id number] Acct: [id number] Name: DEAN WHITE Rep #:[id number] : 1990 33 From: Roberto Carlos Erickson MD PCP: Care Physician,No Primary Status :REG ER Location: ED HPI HPI - Psych History of Present Illness Chief Complaint: Suicidal Informant: patient Onset/Context/Timing Onset: Today Context: Sudden Onset Associated Symptoms Associated Symptoms - Psych: Positive for Suicidal Thoughts; Negative for VisualHallucinations or Auditory Hallucinations Specific plan (suicidal thought): cut wrist w/ razor he was holding Narrative Narrative: 33-year-old male states he is upset about his . Apparently his is an alcoholic according to him, and he states tonight he got into the shower and shetook that opportunity to leave. He does not expand upon this, when asked if sheleft for the evening or left him for good he states basically she is missing andjust plain left. No one can get a hold of her, she will not answer her phone, including her daughter who also left the house, was living with them. As resultof all of this, states he wanted to cut his wrist with a razor blade but insteadI seed cone picker the phone and called for help and now I am here. PFSH PFSH Medical History no medical history no medical history Home Medications NK 02/20/24 [History Last Taken Unknown] Allergy/AdvReac Type Severity Reaction Status Date / Time grass pollen Allergy Hives Verified 02/20/24 22:14 Surgical History no surgical history Social History (Updated 02/20/24 @ 22:[address] Roberto Carlos Erickson MD) Smoking Status: Current some day smoker tobacco type: cigarettes substance use type: marijuana ROS ROS ED Constitutional Constitutional ED: Denies chills or fever(s) Eyes Eyes: Denies change in vision or diplopia ENT ENT ED: Denies rhinorrhea or sore throat Cardiovascular Cardiovascular: Denies chest pain or palpitations Respiratory/Chest Respiratory/Chest: Denies cough or dyspnea Gastrointestinal Gastrointestinal: Denies abdominal pain, diarrhea, nausea or vomiting Genitourinary Genitourinary ED: Denies dysuria or hematuria Musculoskeletal Musculoskeletal: Denies back pain or neck pain Integumentary Denies abscess or rash Neurologic Neurologic: Denies headache(s), paresthesias or weakness Psychiatric Psychiatric: Reports anxiety, depression, suicidal ideation and suicidal thoughts; Denies homicidal ideation EXAM Physical Exam Const Vital Signs: 02/20/24 22:14 02/20/24 23:14 02/20/24 23:23 Temperature 98.3 F Temperature Source Oral Pulse Rate 79 74 72 Respiratory Rate 18 18 Blood Pressure 137/84 H 134/74 H Blood Pressure Mean 101 94 Pulse Ox 97 97 Oxygen Delivery Method Room Air Room Air Positive well nourished and well developed General Appearance ED: well developed and NAD HEENT Reports moist mucous membranes normocephalic and atraumatic Eyes PERRL and EOMs intact bilaterally General Eye ED: Negative for scleral icterus Neck no lymphadenopathy and supple Resp normal respiratory effort and clear to auscultation bilaterally Cardio no murmurs Rate: regular rate Rhythm: regular rhythm GI non-tender and non-distended Auscultation: normoactive bowel sounds Palpation: soft Back/Spine no CVA tenderness and normal ROM Extremity normal to inspection General Extremety ED: Negative for edema General Extremity: Negative for edema Neuro oriented x3, CN's II-XII intact bilaterally, no sensory deficits noted and gait normal Sensorium / Orientation: alert Motor Exam: strength 5/5 throughout Psych mental status grossly normal, thought process normal, cooperative, activity/motor behavior normal and denies homicidal ideation Mood & Affect: depressed and anxious Thought Content: suicidality Insight: insight good Judgement: poor Skin Lesions: no lesions Rashes: no rashes MDM MDM MDM Narrative Medical decision making narrative: Given the patient's history he is given a sitter. Labs obtained as well as toxicology positive for marijuana only which he admits to using, he is otherwisemedically cleared for psychiatric evaluation. Crisis contacted to evaluate. Patient cooperative. Crisis agrees that the patient has severe impulsivity issues, and based mostly upon this, recommends placement which I am not opposed to. Lab Data Attestation: I reviewed the patient's lab results. Labs: Laboratory Results - last 24 hr 02/20/24 22:41 WBC 9.2 RBC 4.97 Hgb 14.4 Hct 44.0 MCV 88.5 MCH 29.0 MCHC 32.7 RDW Std Deviation 43.2 RDW Coeff of Arielle 13.4 Plt Count 321 MPV 9.1 Immature Gran % (Auto) 0.200 Neut % (Auto) 79.1 H Lymph % (Auto) 14.5 L [place] % (Auto) 5.7 Eos % (Auto) 0.1 Baso % (Auto) 0.4 Absolute Neuts (auto) 7.3 Absolute Lymphs (auto) 1.34 Nucleated RBC % 0 Sodium 140 Potassium 4.6 Chloride 105 Carbon Dioxide 30.0 Anion Gap 5 BUN 17 Creatinine 0.90 Est GFR (MDRD) Af Amer 126 Est GFR (MDRD) Non-Af 104 BUN/Creatinine Ratio 18.9 Glucose 119 H Calcium 9.2 Urine Opiates Screen NEGATIVE Urine Methadone Screen NEGATIVE Ur Barbiturates Screen NEGATIVE Ur Phencyclidine Scrn NEGATIVE Ur Amphetamines Screen NEGATIVE MDMA (Ecstasy) Screen NEGATIVE U Benzodiazepines Scrn NEGATIVE Urine Cocaine Screen NEGATIVE U Cannabinoids Screen POSITIVE H Ur Drug Screen Comment Ethyl Alcohol < 3.0 Management Discussion w/another healthcare provider: drying can worker/Case management Discharge Plan Triage Chief Complaint: Suicidal ED Provider: Roberto Carlos Erickson Dx/Rx/DC Orders Clinical Impression: Suicidal ideation Prescriptions: No Action NK Primary Care Provider: Care Physician,No Primary Referrals: Care Physician,No Primary [Primary Care Provider] - Disposition Disposition: Psychiatric Hospital or Unit What to do if you have Problems For any increased pain, shortness of breath, bleeding, nausea or vomiting, chestpain, or any unexpected problems, contact your Primary Care Provider. Call [facility] ([phone]) or report to the closest Emergency Room. Call 911 if necessary. 02/21/24113 <Electronically signed by Roberto Carlos Erickson MD> Cosigner Signature (if applicable): CC: No Primary Care Physician ~ Signed [facility] Work Phone: [phone] 210-904108-01-2023 Hospital Discharge instructions Patient Education 06/27/2023 16:13:52 Cervical Adenitis, Antiobiotic Treatment Local Lymph Node Infection, Antibiotic Treatment You have a bacterial infection of a lymph node. The lymph nodes are part of your immune system. They are found under the jaw and along the side of the neck, in the armpits and groin, and some other parts of the body. An infection or inflammation in nearby tissues causes the lymph nodes to swell andbecome tender. When a bacterial infection occurs in the lymph node, it becomes very painful. The nearby skin gets red and warm. You may also have a fever. Antibiotics and hot compresses are used to treat this infection. The pain and redness will get better over the next 7 to 10 days. Swelling may take several months to completely go away. Sometimes an abscess (with pus) forms inside the lymph node. If this happens, antibiotics may not be enough to cure the infection. Your health care provider may suggest draining it with a needle or that minor surgery is needed to better drain the pus. You may need blood tests or a study of the pus inside the abscess to guide your treatment. Home care Follow these guidelines when caring for yourself at home: Take all of the antibiotic medicine exactly as prescribed until it is gone. Be careful not to miss any doses, especially during the first few days. Make a hot compress by running hot water over a face cloth. Apply it to the sore area until the cloth cools off. Repeat this for 20 minutes. Use the hot compress 3 times a day for the first 3 days, or until the pain and redness begin to get better. The heat will increase the blood flow to the area and speed the healing process. Be sure that the compress is not so hot that it will burn your skin. You may use acetaminophen or ibuprofen to control pain and fever, unless another medicine was prescribed for this. Don t use ibuprofen in children under 6 months of age. If you have chronic liver or kidney disease, talk with your healthcare provider before using these medicines. Also talk with yourprovider if you ve had a stomach ulcer or gastrointestinal bleeding. Don t give aspirin to anyone under 18 years of age who is ill with a fever. It may cause severe liver damage. Follow-up care Follow up with your healthcare provider, or as advised, after you finish the antibiotics. When to seek medical advice Call your healthcare provider right away if any of these occur: Redness, swelling or pain in the lymph node gets worse The lymph node gets bigger, becomes soft in the middle, or doesn t seem to be getting better after you ve taken the antibiotics for 2 days (48 hours) Pus or fluid drains from the lymph node You have trouble breathing or swallowing Also call your provider right away if you have a fever, or your child s provider if your child has a fever (see Fever and children, below) Fever and children Always use a digital thermometer to check your child s temperature. Never use a mercury thermometer. For infants and toddlers, be sure to use a rectal thermometer correctly. A rectal thermometer may accidentally poke a hole in (perforate) the rectum. It may also pass on germs from the stool. Always follow the product maker s directions for proper use. If you don t feel comfortable taking a rectal t emperature, use another method. When you talk to your child s healthcare provider, tell him or her which method you used to take your child s temperature. Here are guidelines for fever temperature. Ear temperatures aren t accurate before 6 months of age.Don t take an oral temperature until your child is at least 4 years old. Infant under 3 months old: Ask your child s healthcare provider how you should take the temperature. Rectal or forehead (temporal artery) temperature of 100.4 F (38 C) or higher, or as directed by theprovider Armpit temperature of 99 F (37.2 C) or higher, or as directed by the provider Child age 3 to 36 months: Rectal, forehead (temporal artery), or ear temperature of 102 F (38.9 C) or higher, or as directed by the provider Armpit temperature of 101 F (38.3 C) or higher, or as directed by the provider Child of any age: Repeated temperature of 104 F (40 C) or higher, or as directed by the provider Fever that lasts more than 24 hours in a child under 2 years old. Or a fever that lasts for 3 days in a child 2 years or older. 3987-4162 [employer]. [address] [place] [address]. All rights reserved. This information is not intended as a substitute for professional medical care. Always follow yourhealthcare professional's instructions. Follow Up Care 06/27/2023 16:03:45 With:Follow up with primary care provider Address:Unknown When:2-4 days [facility] 08-01-2023 Note Discharge Instructions Thank you for allowing [facility] to assist you with your healthcare needs. The following is importantdischarge information regarding your hospital visit. Diagnosis from Today's Visit Abscess - simple Lymphadenitis What to Do Next Instructions from Your Care Team No qualifying data available. Post Acute Orders No qualifying data available. You Need to Schedule the Following Appointments Follow Up with Follow up with primary care provider When Within 2-4 days Allergies seasonal enviromental (Sneezes) Medications Please ask your primary doctor or pharmacist before taking any other medication not listed, including over the counter drugs, herbal medications, vitamins and or supplements as they may interact withyour home medications. What How Much When Instructions Last Dose New doxycycline (doxycycline hyclate 100 mg oral capsule) 1 cap by mouth Two (2) times a day Duration: 10 Days Printed Prescription Unchanged acetaminophen (acetaminophen 500 mg oral tablet) 2 tab(s) by mouth Every 6 hours Unchanged nabumetone (nabumetone 500 mg oral tablet) 2 tab(s) by mouth Two (2) times a day Duration: 14 Days Unchanged naproxen (Aleve 220 mg oral tablet) 1 tab(s) by mouth Every 8 hours as needed for as needed for pain Please take this list to your next doctor s visit. Bring all medications you take, including over the counter medications, herbals and other supplements with you to your doctor s visit. Patients and families are reminded to discard old lists and to update any records with all medication providers or retail pharmacies. Medication Leaflets doxycycline (oral/injection) (DOX deann fan) Acticlate, Adoxa, Alodox, Avidoxy, Doryx, Mondoxyne NL, Monodox, Morgidox, Okebo, Oracea, Oraxyl, Targadox, Vibramycin What is the most important information I should know about doxycycline? You should not take this medicine if you are allergic to any tetracycline antibiotic. Children younger than 8 years old should use doxycycline only in cases of severe or life-threatening conditions. This medicine can cause permanent yellowing or graying of the teeth in children Using doxycycline during could harm the unborn baby or cause permanent tooth discoloration later in the baby's life. What is doxycycline? Doxycycline is a tetracycline antibiotic that Doxycycline is used to treat many different bacterial infections, such as acne, urinary tract infections, intestinal infections, eye infections, gonorrhea, chlamydia, periodontitis (gum disease), andothers. Doxycycline is also used to treat blemishes, bumps, and acne-like lesions caused by rosacea. Doxycycline will not treat facial redness caused by rosacea. Some forms of doxycycline are used to prevent malaria, to treat anthrax, or to treat infections caused by mites, ticks, or lice. Doxycycline may also be used for purposes not listed in this medication guide. What should I discuss with my healthcare provider before taking doxycycline? You should not take this medicine if you are allergic to doxycycline or other tetracycline antibiotics such as demeclocycline, minocycline, tetracycline, or tigecycline. Tell your doctor if you have ever had: liver disease; kidney disease; asthma or sulfite allergy; increased pressure inside your skull; or if you also take isotretinoin, seizure medicine, or a blood thinner such as warfarin (Coumadin). If you are using doxycycline to treat gonorrhea, your doctor may test you to make sure you do not also have syphilis, another sexually transmitted disease. Taking this medicine during may affect tooth and bone development in the unborn baby. Taking doxycycline during the last half of can cause permanent tooth discoloration later in the baby's life. Tell your doctor if you are or if you become . Doxycycline can make control pills less effective. Ask your doctor about using a non-hormonalbirth control (condom, diaphragm with spermicide) to prevent . Doxycycline can pass into breast milk and may affect bone and tooth development in a nursing infant. Do not breastfeed while you are taking doxycycline. Doxycycline can cause permanent yellowing or graying of the teeth in children younger than 8 years old. Children should use doxycycline only in cases of severe or life-threatening conditions such as anthrax or [place] spotted fever. The benefit of treating a serious condition may outweigh any risks to the child's tooth development. How should I take doxycycline? Follow all directions on your prescription label and read all medication guides or instruction sheets. Use the medicine exactly as directed. Take doxycycline with a full glass of water. Drink plenty of liquids while you are taking doxycycline. Read and carefully follow any Instructions for Use provided with your medicine. Ask your doctor or pharmacist if you do not understand these instructions. Most brands of doxycyline may be taken with food or milk if the medicine upsets your stomach. Different brands of doxycycline may have different instructions about taking them with or without food. Take Oracea on an empty stomach, at least 1 hour before or 2 hours after a meal. You may need to split a doxycycline tablet to get the correct dose. Follow your doctor's instructions. Swallow a delayed-release capsule or tablet whole. Do not crush, chew, break, or open it. Measure liquid medicine with the dosing syringe provided, or with a special dose-measuring spoon ormedicine cup. If you do not have a dose-measuring device, ask your pharmacist for one. If you take doxycycline to prevent malaria: Start taking the medicine 1 or 2 days before entering an area where malaria is common. Continue taking the medicine every day during your stay and for at least 4 weeks after you leave the area. Doxycycline is usually given by injection only if you are unable to take the medicine by mouth. A healthcare provider will give you this injection as an infusion into a vein. Use this medicine for the full prescribed length of time, even if your symptoms quickly improve. Skipping doses can increase your risk of infection that is resistant to medication. Doxycycline will not treat a viral infection such as the flu or a common cold. Store at room temperature away from moisture, heat, and light. Throw away any unused medicine after the expiration date on the label has passed. Using doxycycline can cause damage to your kidneys. What happens if I miss a dose? Take the medicine as soon as you can, but skip the missed dose if it is almost time for your next dose. Do not take two doses at one time. What happens if I overdose? Seek emergency medical attention or call the Poison Help line at . What should I avoid while taking doxycycline? Do not take iron supplements, multivitamins, calcium supplements, antacids, or laxatives within 2 hours before or after taking doxycycline. Avoid taking any other antibiotics with doxycycline unless your doctor has told you to. Doxycycline could make you sunburn more easily. Avoid sunlight or tanning beds. Wear protective clothing and use sunscreen (SPF 30 or higher) when you are outdoors. Antibiotic medicines can cause diarrhea, which may be a sign of a new infection. If you have diarrhea that is watery or bloody, call your doctor. Do not use anti-diarrhea medicine unless your doctor tells you to. What are the possible side effects of doxycycline? Get emergency medical help if you have signs of an allergic reaction (hives, difficult breathing, swelling in your face or throat) or a severe skin reaction (fever, sore throat, burning in your eyes,skin pain, red or purple skin rash that spreads and causes blistering and peeling). Seek medical treatment if you have a serious drug reaction that can affect many parts of your body.Symptoms may include: skin rash, fever, swollen glands, flu- like symptoms, muscle aches, severe weakness, unusual bruising, or yellowing of your skin or eyes. This reaction may occur several weeks after you began using doxycycline. Call your doctor at once if you have: severe stomach pain, diarrhea that is watery or bloody; throat irritation, trouble swallowing; chest pain, irregular heart rhythm, feeling short of breath; little or no urination; low white blood cell counts--fever, chills, swollen glands, body aches, weakness, pale skin, easy bruising or bleeding; increased pressure inside the skull--severe headaches, ringing in your ears, dizziness, nausea, vision problems, pain behind your eyes; or signs of liver or pancreas problems--loss of appetite, upper stomach pain (that may spread to your back), tiredness, nausea or vomiting, fast heart rate, dark urine, jaundice (yellowing of the skin or eyes). Common side effects may include: nausea, vomiting, upset stomach, loss of appetite; mild diarrhea; skin rash or itching; darkened skin color; or vaginal itching or discharge. This is not a complete list of side effects and others may occur. Call your doctor for medical advice about side effects. You may report side effects to FDA at 5-292-VRS-5414. What other drugs will affect doxycycline? Sometimes it is not safe to use certain medications at the same time. Some drugs can affect your blood levels of other drugs you take, which may increase side effects or make the medications less effective. Other drugs may affect doxycycline, including prescription and tlyy-tgt-vsdfved medicines, vitamins, and herbal products. Tell your doctor about all your current medicines and any medicine you start or stop using. Where can I get more information? Your pharmacist can provide more information about doxycycline. Remember, keep this and all other medicines out of the reach of children, never share your medicines with others, and use this medication only for the indication prescribed. Every effort has been made to ensure that the information provided by [employer]. ('[employer]') is accurate, up-to-date, and complete, but no guarantee is made to that effect. Drug information contained herein may be time sensitive. [employer] information has been compiled for use by healthcare practitioners and consumers in the [place] and therefore [employer] does not warrant that uses outside of the [place] are appropriate, unless specifically indicated otherwise. [employer] drug information does not endorse drugs, diagnose patients or recommend therapy. [employer] drug information isan informational resource designed to assist licensed healthcare practitioners in caring for their p atients and/or to serve consumers viewing this service as a supplement to, and not a substitute for, the expertise, skill, knowledge and judgment of healthcare practitioners. The absence of a warningfor a given drug or drug combination in no way should be construed to indicate that the drug or drug combination is safe, effective or appropriate for any given patient. [employer] does not assume any responsibility for any aspect of healthcare administered with the aid of information [employer] provides. The information contained herein is not intended to cover all possible uses, directions, precautions, warnings, drug interactions, allergic reactions, or adverse effects. If you have questions about the drugs you are taking, check with your doctor, nurse or pharmacist. Copyright 3520-5288 [employer]. Version: 21.04. Revision Date: 09/30/2020. Education Materials Local Lymph Node Infection, Antibiotic Treatment You have a bacterial infection of a lymph node. The lymph nodes are part of your immune system. They are found under the jaw and along the side of the neck, in the armpits and groin, and some other parts of the body. An infection or inflammation in nearby tissues causes the lymph nodes to swell andbecome tender. When a bacterial infection occurs in the lymph node, it becomes very painful. The nearby skin gets red and warm. You may also have a fever. Antibiotics and hot compresses are used to treat this infection. The pain and redness will get better over the next 7 to 10 days. Swelling may take several months to completely go away. Sometimes an abscess (with pus) forms inside the lymph node. If this happens, antibiotics may not be enough to cure the infection. Your health care provider may suggest draining it with a needle or that minor surgery is needed to better drain the pus. You may need blood tests or a study of the pus inside the abscess to guide your treatment. Home care Follow these guidelines when caring for yourself at home: Take all of the antibiotic medicine exactly as prescribed until it is gone. Be careful not to miss any doses, especially during the first few days. Make a hot compress by running hot water over a face cloth. Apply it to the sore area until the cloth cools off. Repeat this for 20 minutes. Use the hot compress 3 times a day for the first 3 days, or until the pain and redness begin to get better. The heat will increase the blood flow to the area and speed the healing process. Be sure that the compress is not so hot that it will burn your skin. You may use acetaminophen or ibuprofen to control pain and fever, unless another medicine was prescribed for this. Don t use ibuprofen in children under 6 months of age. If you have chronic liver or kidney disease, talk with your healthcare provider before using these medicines. Also talk with yourprovider if you ve had a stomach ulcer or gastrointestinal bleeding. Don t give aspirin to anyone under 18 years of age who is ill with a fever. It may cause severe liver damage. Follow-up care Follow up with your healthcare provider, or as advised, after you finish the antibiotics. When to seek medical advice Call your healthcare provider right away if any of these occur: Redness, swelling or pain in the lymph node gets worse The lymph node gets bigger, becomes soft in the middle, or doesn t seem to be getting better after you ve taken the antibiotics for 2 days (48 hours) Pus or fluid drains from the lymph node You have trouble breathing or swallowing Also call your provider right away if you have a fever, or your child s provider if your child has a fever (see Fever and children, below) Fever and children Always use a digital thermometer to check your child s temperature. Never use a mercury thermometer. For infants and toddlers, be sure to use a rectal thermometer correctly. A rectal thermometer may accidentally poke a hole in (perforate) the rectum. It may also pass on germs from the stool. Always follow the product maker s directions for proper use. If you don t feel comfortable taking a rectal t emperature, use another method. When you talk to your child s healthcare provider, tell him or her which method you used to take your child s temperature. Here are guidelines for fever temperature. Ear temperatures aren t accurate before 6 months of age.Don t take an oral temperature until your child is at least 4 years old. Infant under 3 months old: Ask your child s healthcare provider how you should take the temperature. Rectal or forehead (temporal artery) temperature of 100.4 F (38 C) or higher, or as directed by theprovider Armpit temperature of 99 F (37.2 C) or higher, or as directed by the provider Child age 3 to 36 months: Rectal, forehead (temporal artery), or ear temperature of 102 F (38.9 C) or higher, or as directed by the provider Armpit temperature of 101 F (38.3 C) or higher, or as directed by the provider Child of any age: Repeated temperature of 104 F (40 C) or higher, or as directed by the provider Fever that lasts more than 24 hours in a child under 2 years old. Or a fever that lasts for 3 days in a child 2 years or older. 7955-15[address] [employer]. [address] [place] [address], [place] [address]. All rights reserved. This information is not intended as a substitute for professional medical care. Always follow yourhealthcare professional's instructions. Additional Information VACCINATE! IT SAVES LIVES! Members of the community who have not yet received the COVID-19 vaccine and would like to receive it can visit one of [facility] vaccine clinics. There are many vaccine clinic locations within the [facility]. For locations and available times, please visit [email or web address]/. It is important to note that some COVID mobile vaccine clinics are held outdoors and may be canceled in rainy or stormy conditions. To learn more about pediatric vaccinations (ages 5-11), we invite you to visit the [facility] webpage. [email or web address] learn more about the COVID-19 vaccine, we invite you to visit the CDC website for a list of frequently asked questions. https://www.cdc.gov/coronavirus/2019-ncov/vaccines/faq.html [email or web address] Patient Portal Access Instructions: Stay connected with your healthcare team and access your personal medical information anytime with the [email or web address] Patient Portal. If you would like a full copy of your medical records please contact the [facility] Medical Records Department Monday through Monday between 8a.m. and 4:30p.m. Please follow the directions below to access the portal: 1.Access the email account you provided upon registration to the [facility].2.Look for an invitation email from [facility].3.Open the email and access the invitation link: [facility] to [facility]4.Fill in the required multani to create your account. Sign into [email or web address] with your username and password that you created in the above steps to stay up to date. You can then view a summary of results, a summary of your visits, and the ability to download your summaries to your computer or send the information securely to a physician. Remember that your healthcare information is confidential, so carefully consider who you will allow to register on the [email or web address] Patient Portal for access to your information. You can also access the [email or web address] Patient Portal on the [employer]. Simply click on Health Records under MEDOP and then click on the [facility] logo. HOW TO SAFELY DISPOSE OF PRESCRIPTION MEDICATIONS Please use one of the following methods to safely dispose of your unused medications. 1.Use a drug disposal kit: the drug disposal pouch allows you to safely discard your old and unuseddrugs. Ask your nurse to give you one when you are discharged.2.Visit a local take-back location: Many local pharmacies and police departments have programs that collect old and unwanted prescriptiondrugs. Call your local pharmacy or go to [email or web address] to find one close to you.3.Make use of household items: Use cat litter or old coffee grounds to dispose medications if other options arenot available. Mix your drugs with these household products, seal them in an airtight container andthrow it into the garbage. Call [facility]: [phone] to be sure your drugs can be disposed of in this way. Some medicines may require a different approach.4.Never flush your medications down the toilet. IF YOU HAVE BEEN PRESCRIBED AN OPIOIDS FOR PAIN If you have been prescribed an opioid (such as hydrocodone, oxycodone or morphine), it is critical to understand the possible side effects and risks of opioid pain medications. Even when taken as directed, opioids can have several side effects including: Tolerance, meaning you might need to take more of a medication for the same pain relief. Nausea, vomiting and/or constipation. Sleepiness, dizziness, dry mouth, confusion, depression or itching. Physical dependence, meaning you have withdrawal symptoms when a medication is stopped ? this can develop within a few days. KNOW YOUR RESPONSIBILITIES It is important to know exactly how much and how often to take the opioid pain medications you are prescribed. Never take opioids in higher amounts or more often than prescribed. Do not combine opioids with alcohol or other drugs that cause drowsiness, such as benzodiazepines, also known as benzos,including diazepam and alprazolam, muscle relaxants or sleep aids. Never sell or share prescriptionopioids. This is illegal. Store opioids in a secure place and out of reach of others (including children, family, friends and visitors). The last page(s) of this document has been signed and retained as a CHART COPY Signatures Patient Education Materials Cervical Adenitis, Antiobiotic Treatment Medication Leaflets doxycycline (oral/injection) My discharge plan and instructions have been reviewed and explained to me and I,DEAN WHITE understand my current condition and have read and understand these discharge instructions. I have received a written copy of the plan/instructions. If I have questions, I am aware that I should contact my doctor. Patient/Day Care Attendant Signature: Date/Time: Relationship to Patient: Witness Name/Signature: Date/Time: [facility]08-12-2022 Instructions* Patient Instructions* Rina Bravo APRN.CNP - 07/08/2022 11:01 AM EDT Please keep appointment with dentist on Monday You may use over the counter analgesics [facility] History of Present illness Narrative* Rina Bravo APRN.CNP - 07/08/2022 10:57 AM EDT Images from the original note were not included. This note was created using [employer]. Subjective Dean White is a 31 year old male. 31 year old male with no PMH presents for dental concerns Acute onset is chronic in nature Right lower molar. Endorses this has been ongoing for over a month. States initially a pain, then cracked and has now progressively worsened. Has appt on Monday with [facility] Denies tobacco usage. Has used Tylenol and Motrin. Was seen at [facility] last month for same, was given a nerve block Denies inability to handle secretions. Denies muffled voice. The history is provided by the patient. No chinese language professor was used. Dental Problem This is a new problem. The current episode started more than 1 month ago. The problem occurs every several days. The problem has been waxing and waning. Pertinent negatives include no abdominal pain,anorexia, arthralgias, change in bowel habit, chest pain, chills, congestion, coughing, diaphoresis, fatigue, fever, headaches, joint swelling, myalgias, nausea, neck pain, numbness, rash, sore throat, swollen glands, urinary symptoms, vertigo, visual change, vomiting or weakness. Nothing aggravates the symptoms. He has tried nothing for the symptoms. The treatment provided no relief. PAST MEDICAL HISTORY Diagnosis Date Allergic rhinitis, cause unspecified PAST SURGICAL HISTORY Procedure Laterality Date NONE ALLERGIES Patient has no known allergies. MEDICATIONS amoxicillin-clavulanic acid (AUGMENTIN) 875-125 mg per tablet^Take 1 tablet by mouth twice daily for 10 days.^Disp: 20 tablet^Rfl: 0 LORATADINE 10 MG TAB^Take one(1) tablet daily prn allergy symptoms^Disp: 30^Rfl: 3 (Patient not taking: Reported on 07/08/2022) KETOTIFEN FUMARATE 0.025 % EYE DROPS^1 drop in afected eye(s) every 8 to 12 hours as needed^Disp: 5ml^Rfl: 1 (Patient not taking: Reported on 04/26/2022) fluticasone propionate(FLONASE 50 MCG/ACTUATION NASAL SPRAY)^1 spray per nostril once a day prn nasal allergy symptoms^Disp: 1^Rfl: 2 (Patient not taking: Reported on 04/26/2022) FAMILY HISTORY Problem Relation Age of Onset Diabetes Maternal Grandfather Cancer Maternal Grandmother breast and lung cancer non smoker Social History Tobacco Use Smoking status: Never Passive exposure: Yes Smokeless tobacco: Never Substance Use Topics Alcohol use: Yes Drug use: Yes Types: Marijuana Review of Systems Constitutional: Negative for chills, diaphoresis, fatigue and fever. HENT: Positive for dental problem. Negative for congestion, drooling and sore throat. Eyes: Negative for pain, discharge and itching. Respiratory: Negative for apnea, cough, choking and chest tightness. Cardiovascular: Negative for chest pain, palpitations and leg swelling. Gastrointestinal: Negative for abdominal pain, anorexia, change in bowel habit, constipation, diarrhea, nausea and vomiting. Musculoskeletal: Negative for arthralgias, joint swelling, myalgias and neck pain. Skin: Negative for color change, pallor and rash. Allergic/Immunologic: Negative for environmental allergies, food allergies and immunocompromised state. Neurological: Negative for dizziness, vertigo, weakness, numbness and headaches. Hematological: Negative for adenopathy. Does not bruise/bleed easily. Psychiatric/Behavioral: Negative for agitation and behavioral problems. Objective BP 122/82 Pulse 64 Temp 36.3 C (97.3 F) (Tympanic) Resp 16 Wt 91.1 kg (200 lb 12.8 oz) SpO2 98% Physical Exam Vitals and nursing note reviewed. Constitutional: General: He is not in acute distress. Appearance: Normal appearance. He is not ill-appearing, toxic-appearing or diaphoretic. HENT: Head: Normocephalic and atraumatic. Right Ear: External ear normal. Left Ear: External ear normal. Nose: Nose normal. No congestion or rhinorrhea. Mouth/Throat: Mouth: Mucous membranes are moist. Pharynx: Oropharynx is clear. No oropharyngeal exudate or posterior oropharyngeal erythema. Eyes: General: Right eye: No discharge. Left eye: No discharge. Extraocular Movements: Extraocular movements intact. Conjunctiva/sclera: Conjunctivae normal. Pupils: Pupils are equal, round, and reactive to light. Cardiovascular: Rate and Rhythm: Normal rate and regular rhythm. Pulses: Normal pulses. Heart sounds: Normal heart sounds. No murmur heard. No friction rub. No gallop. Pulmonary: Effort: Pulmonary effort is normal. No respiratory distress. Breath sounds: Normal breath sounds. No stridor. No wheezing, rhonchi or rales. Chest: Chest wall: No tenderness. Abdominal: General: Abdomen is flat. There is no distension. Palpations: Abdomen is soft. There is no mass. Tenderness: There is no abdominal tenderness. There is no guarding or rebound. Hernia: No hernia is present. Musculoskeletal: General: No swelling, tenderness, deformity or signs of injury. Normal range of motion. Cervical back: Normal range of motion and neck supple. No rigidity or tenderness. Right lower leg: No edema. Left lower leg: No edema. Lymphadenopathy: Cervical: No cervical adenopathy. Skin: General: Skin is warm and dry. Capillary Refill: Capillary refill takes less than 2 seconds. Coloration: Skin is not jaundiced or pale. Findings: No bruising, lesion or rash. Neurological: General: No focal deficit present. Mental Status: He is alert and oriented to person, place, and time. Cranial Nerves: No cranial nerve deficit. Sensory: No sensory deficit. Motor: No weakness. Coordination: Coordination normal. Gait: Gait normal. Deep Tendon Reflexes: Reflexes normal. Psychiatric: Mood and Affect: Mood normal. Behavior: Behavior normal. Thought Content: Thought content normal. Assessment and Plan ASSESSMENT/PLAN: 1. 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 It often starts with a crack or cavity in thetooth. A pocket of pus forms between the tooth and the bone. The infection causes pain and swellingof the gum, cheek, or jaw. The pain is often made worse by drinking hot or cold fluids, or biting on hard foods. Pain may be felt in the facial sinus or in the ear. A severe infection can cause problems with swallowing and breathing. Causes Cavities Trauma Previous dental work Symptoms Pain Swelling around the tooth or face and cheek Redness Bad breath Bad taste in the mouth Fever You will be started on an antibiotic. But, final treatment requires draining the pus. This can be done by removing the tooth or getting a root canal. An oral surgeon typically removes diseased teeth.An safemaker does a root canal. This involves drilling an opening in the tooth to get to access the canals in the root. Once these are reached, the pus can be drained. Then the canals are cleaned and shaped before filling them with a special material called tanya percha. After the infection has healed, a crown is placed over the tooth. Home care The following guidelines will help you care for your abscess at home: Don't have hot or cold foods and liquids. Your tooth may be sensitive to temperature changes. If your tooth is chipped or cracked, or if there is a large open cavity, apply oil of cloves directly to the tooth to reduce pain. Oil of cloves is sold cagk-ikn-wztthoe in pharmacies. Some pharmacies carry an pdhk-pxe-jzxtqac toothache kit. This contains oil of cloves and a paste, which can be applied over the exposed tooth to decrease sensitivity. Apply an ice pack (ice cubes in a plastic bag, wrapped in a towel) over the injured area for 10 to 20 minutes every 1 to 2 hours the first day for pain relief. Continue this 3 to 4 times a day until the pain and swelling goes away. To make an ice pack, put ice cubes in a plastic bag that seals at the top. Wrap the bag in a clean, thin towel or cloth. Never put ice or an ice pack directly on the skin. You can take acetaminophen or ibuprofen for pain, unless you were given a different pain medicine to use. If you have chronic liver or kidney disease, have ever had a stomach ulcer or gastrointestinal bleeding, or are taking blood- thinning medicines, talk with your healthcare provider before using these medicines. An antibiotic will be prescribed. Take it as directed until completed, even if you are feeling better sooner. Follow-up care Follow up as advised with an safemaker, or oral surgeon. Even though your pain may improve with the treatment given today, only a dentist, safemaker, or oral surgeon can provide full treatment for this problem. If a culture was done, you will be told if the treatment needs to be changed. You can call in as directed for the results. If X-rays were taken, they will be reviewed by a specialist. You will be given the results, especially if they affect treatment. Call 911 Call 911 if any of these occur: Trouble breathing or swallowing, or wheezing Hoarse voice or trouble speaking Confusion Extreme drowsiness or trouble awakening Fainting or loss of consciousness Rapid heart rate When to seek medical advice Call your healthcare provider right away if any of these occur: Swollen or red face or eyelid Pain gets worse or spreads to the neck You have a fever of 100.4 F (38 C) or higher, or as directed by your healthcare provider Unusual drowsiness, a headache or stiff neck, or weakness Pus drains from the gum or tooth You can't open your mouth wide [id number] [employer] [place] [address]. All rights reserved. This information is not intended as a substitute for professional medical care. Always follow yourhealthcare professional's instructions. Follow Up Care 06/11/2022 09:31:42 With:your dentist Address: When:2-4 days [facility] 07-16-[facility]22 Emergency department Discharge summary Discharge Instructions Thank you for allowing [facility] to assist you with your healthcare needs. The following is importantdischarge information regarding your hospital visit. Diagnosis from Today's Visit Pain of jaw What to Do Next Instructions from Your Care Team No qualifying data available. Post Acute Orders No qualifying data available. You Need to Schedule the Following Appointments Follow Up with your dentist When Within 2-4 days Where: Allergies seasonal enviromental (Sneezes) Medications Please ask your primary doctor or pharmacist before taking any other medication not listed, including over the counter drugs, herbal medications, vitamins and or supplements as they may interact withyour home medications. What How Much When Instructions Last Dose New benzocaine topical (Orajel D 10% mucous membrane gel) 1 application Topical Four (4) times a day Duration: 5 Days Printed Prescription New nabumetone (nabumetone 500 mg oral tablet) 2 tab(s) by mouth Two (2) times a day Duration: 14 Days Printed Prescription New penicillin V potassium (penicillin V potassium 500 mg oral tablet) 1 tab(s) by mouth Four (4) times a day Duration: 7 Days Printed Prescription Unchanged acetaminophen (acetaminophen 500 mg oral tablet) 2 tab(s) by mouth Every 6 hours Unchanged naproxen (Aleve 220 mg oral tablet) 1 tab(s) by mouth Every 8 hours as needed for as needed for pain Please take this list to your next doctor s visit. Bring all medications you take, including over the counter medications, herbals and other supplements with you to your doctor s visit. Patients and families are reminded to discard old lists and to update any records with all medication providers or retail pharmacies. Medication Leaflets nabumetone (na BUE me tone) Relafen What is the most important information I should know about nabumetone? Nabumetone can increase your risk of fatal heart attack or stroke. Do not use this medicine just before or after heart bypass surgery (coronary artery bypass graft, or CABG). Nabumetone may also cause stomach or intestinal bleeding, which can be fatal. What is nabumetone? Nabumetone is a nonsteroidal anti-inflammatory drug (NSAID). Nabumetone works by reducing hormones that cause inflammation and pain in the body. Nabumetone is used to relieve the symptoms of rheumatoid arthritis or osteoarthritis. Nabumetone may also be used for purposes not listed in this medication guide. What should I discuss with my healthcare provider before taking nabumetone? Nabumetone can increase your risk of fatal heart attack or stroke, even if you don't have any risk factors. Do not use this medicine just before or after heart bypass surgery (coronary artery bypass graft, or CABG). Nabumetone may also cause stomach or intestinal bleeding, which can be fatal. These conditions can occur without warning while you are using nabumetone, especially in older adults. You should not use nabumetone if you are allergic to it, or if you have ever had an asthma attack or severe allergic reaction after taking aspirin or an NSAID. Tell your doctor if you have ever had: heart disease, high blood pressure, high cholesterol, diabetes, or if you smoke; a heart attack, stroke, or blood clot; stomach ulcers or bleeding; asthma; liver or kidney disease; or fluid retention. If you are , you should not take nabumetone unless your doctor tells you to. Taking an NSAID during the last 20 weeks of can cause serious heart or kidney problems in the unborn baby and possible complications with your . You should not breastfeed while using this medicine. Nabumetone is not approved for use by anyone younger than 18 years old. How should I take nabumetone? Follow all directions on your prescription label and read all medication guides. Your doctor may occasionally change your dose. Use the lowest dose that is effective in treating your condition. You may take nabumetone with or without food. If you use this medicine long-term, you may need frequent medical tests. Store at room temperature away from moisture and heat. Keep the bottle tightly closed when not in use. What happens if I miss a dose? Take the medicine as soon as you can, but skip the missed dose if it is almost time for your next dose. Do not take two doses at one time. What happens if I overdose? Seek emergency medical attention or call the Poison Help line at . What should I avoid while taking nabumetone? Avoid drinking alcohol. It may increase your risk of stomach bleeding. Ask a doctor or pharmacist before using other medicines for pain, fever, swelling, or cold/flu symptoms. They may contain ingredients similar to nabumetone (such as aspirin, ibuprofen, ketoprofen, ornaproxen). Nabumetone could make you sunburn more easily. Avoid sunlight or tanning beds. Wear protective clothing and use sunscreen (SPF 30 or higher) when you are outdoors. What are the possible side effects of nabumetone? Get emergency medical help if you have signs of an allergic reaction (hives, sneezing, runny or stuffy nose, wheezing, difficult breathing, swelling in your face or throat) or a severe skin reaction (fever, sore throat, burning eyes, skin pain, red or purple skin rash with blistering and peeling). Get emergency medical help if you have signs of a heart attack or stroke: chest pain spreading to your jaw or shoulder, sudden numbness or weakness on one side of the body, slurred speech, feeling short of breath. Stop using nabumetone and call your doctor at once if you have: shortness of breath (even with mild exertion); swelling or rapid weight gain; the first sign of any skin rash, no matter how mild; signs of stomach bleeding--bloody or tarry stools, coughing up blood or vomit that looks like coffee grounds; liver problems--nausea, upper stomach pain, itching, tired feeling, flu-like symptoms, loss of appetite, dark urine, cherelle-colored stools, jaundice (yellowing of the skin or eyes); kidney problems--little or no urinating, painful or difficult urination, swelling in your feet or ankles, feeling tired or short of breath; or low red blood cells (anemia)--pale skin, unusual tiredness, feeling light-headed or short of breath, cold hands and feet. Common side effects may include: stomach pain, indigestion, nausea; diarrhea, constipation, gas; swelling in your hands and feet; headache, dizziness; itching, skin rash; or ringing in your ears. This is not a complete list of side effects and others may occur. Call your doctor for medical advice about side effects. You may report side effects to FDA at 8-222-PCE-9273. What other drugs will affect nabumetone? Ask your doctor before using nabumetone if you take an antidepressant. Taking certain antidepressants with an NSAID may cause you to bruise or bleed easily. Tell your doctor about all your other medicines, especially: lithium; methotrexate; a blood thinner (warfarin, Coumadin, Jantoven); heart or blood pressure medication, including a diuretic or 'water pill'; or steroid medicine (such as prednisone). This list is not complete. Other drugs may affect nabumetone, including prescription and udhx-ddz-irtpwpc medicines, vitamins, and herbal products. Not all possible drug interactions are listed here. Where can I get more information? Your pharmacist can provide more information about nabumetone. Remember, keep this and all other medicines out of the reach of children, never share your medicines with others, and use this medication only for the indication prescribed. Every effort has been made to ensure that the information provided by [employer]. ('[employer]') is accurate, up-to-date, and complete, but no guarantee is made to that effect. Drug information contained herein may be time sensitive. [employer] information has been compiled for use by healthcare practitioners and consumers in the [place] and therefore [employer] does not warrant that uses outside of the [place] are appropriate, unless specifically indicated otherwise. [employer] drug information does not endorse drugs, diagnose patients or recommend therapy. [employer] drug information isan informational resource designed to assist licensed healthcare practitioners in caring for their p atients and/or to serve consumers viewing this service as a supplement to, and not a substitute for, the expertise, skill, knowledge and judgment of healthcare practitioners. The absence of a warningfor a given drug or drug combination in no way should be construed to indicate that the drug or drug combination is safe, effective or appropriate for any given patient. [employer] does not assume any responsibility for any aspect of healthcare administered with the aid of information [employer] provides. The information contained herein is not intended to cover all possible uses, directions, precautions, warnings, drug interactions, allergic reactions, or adverse effects. If you have questions about the drugs you are taking, check with your doctor, nurse or pharmacist. Copyright 8877-5078 [employer]. Version: 13.02. Revision Date: 12/16/2020. benzocaine topical (LIZZY oh holly TOP ik al) Americaine, Anacaine, Anbesol Gel, Benzodent, Cepacol Ultra, [place]-O-Robert, Dermoplast, Kank-a, Lanacane, Medicone Maximum Strength, Numzident, Num-Zit, Orabase, Orajel, Outgro Pain Relief, Retre-Gel, Solarcaine Aerosol, Topex, zilactin-B What is the most important information I should know about benzocaine topical? Benzocaine topical used in the mouth may cause a condition in which the oxygen in your body tissuescan become dangerously low. This is a potentially fatal condition called methemoglobinemia (met-HEEM-oh ojx-aqe-HJ-reba-a). Do not use benzocaine topical if you have ever had methemoglobinemia. GET EMERGENCY MEDICAL HELP IF YOU HAVE SYMPTOMS OF METHEMOGLOBINEMIA: headache, tired feeling, confusion, fast heart rate, and feeling light-headed or short of breath, with a pale, blue, or royal appearance of your skin, lips, or fingernails. An overdose of numbing medication can cause fatal side effects if too much of the medicine is absorbed through your skin and into your blood. Use the smallest amount needed. Do not use this medicine on a child younger than 2 years old. What is benzocaine topical? Benzocaine is a local anesthetic (numbing medication). It works by blocking nerve signals in your body. Benzocaine topical is used to reduce pain or discomfort caused by minor skin irritations, sore throat, sunburn, vaginal or rectal irritation, ingrown toenails, hemorrhoids, and many other sources of minor pain on a surface of the body. Benzocaine is also used to numb the skin or surfaces inside themouth, nose, throat, vagina, or rectum to lessen the pain of inserting a medical instrument such asa tube or speculum. Benzocaine topical should not be used to treat teething pain in infants, and is not approved for use in a child younger than 2 years old. There are many brands and forms of benzocaine topical available. Not all brands are listed on this leaflet. Benzocaine topical may also be used for purposes not listed in this medication guide. What should I discuss with my healthcare provider before using benzocaine topical? Do not use benzocaine topical if you have ever had methemoglobinemia in the past. Do not use benzocaine topical on a child younger than 2 years old. An overdose of numbing medication can cause fatal side effects if too much of the medicine is absorbed through your skin and into your blood. This can happen if you apply more than the recommended dose. Fatal overdoses have occurred when numbing medicines were used without the advice of a medical doctor (such as during a cosmetic procedure like laser hair removal). Be aware that many cosmetic procedures are performed without a medical doctor present. Ask a doctor or pharmacist if this medicine is safe to use if you have: a personal or family history of methemoglobinemia, or any genetic (inherited) enzyme deficiency; asthma, bronchitis, emphysema, or other breathing disorder; heart disease; or if you smoke. Ask a doctor before using this medicine if you are or breast-feeding. If you apply benzocaine topical to your chest, avoid areas that may come into contact with the baby's mouth. How should I use benzocaine topical? Use exactly as directed on the label, or as prescribed by your doctor. Read all medication guides or instruction sheets. Your body may absorb more of this medicine if you use too much, if you apply it over large skin areas, or if you apply heat, bandages, or plastic wrap to treated skin areas. Skin that is cut or irritated may also absorb more topical medication than healthy skin. Use the smallest amount needed to numb the skin or relieve pain. Do not use large amounts of benzocaine topical. Do not cover treated skin areas with a bandage or plastic wrap without medical advice. Do not use benzocaine topical to treat large skin areas or deep puncture wounds. Avoid using the medicine on skin that is raw or blistered, such as a severe burn or abrasion. To treat minor skin conditions, apply a thin layer of benzocaine topical to the affected area. If using the spray, hold the container 6 to 12 inches away from the skin. Do not spray this medication onto your face. [place] it instead on your hands and then rub it onto the face, avoiding contact with your eyes. Clean the area with soap and water before applying benzocaine topical. Wash your hands before and after inserting a rectal suppository. Do not take a rectal suppository by mouth. It is for use only in your rectum. Remove the wrapper, but avoid handling the suppository too long or it will melt. Lie on your back with your knees up toward your chest. Gently insert the suppository into your rectum about 1 inch, pointed tip first. Stay lying down for a few minutes while the suppository melts. You should feel little or no discomfort. Avoid using the bathroom for at least an hour. Call your doctor if your symptoms do not improve or if they get worse within the first 7 days of using benzocaine topical. Also call your doctor if your symptoms had cleared up but then came back. If you are treating a sore throat, call your doctor if the pain is severe or lasts longer than 2 days, especially if you also develop a fever, headache, skin rash, swelling, nausea, vomiting, cough, or breathing problems. Store at room temperature away from moisture and heat. Do not freeze. What happens if I miss a dose? Since benzocaine topical is used when needed, you may not be on a dosing schedule. Skip any missed dose if it's almost time for your next dose. What happens if I overdose? Seek emergency medical attention or call the Poison Help line at . An overdose of benzocaine topical applied to the skin can cause life-threatening side effects such as uneven heartbeats, seizure (convulsions), coma, slowed breathing, or respiratory failure (breathing stops). What should I avoid while using benzocaine topical? Avoid eating within 1 hour after using benzocaine topical on your gums or inside your mouth. Benzocaine topical is for use only on the surface of your body, or just inside the mouth, vagina, or rectum. Avoid getting this medication in your eyes. Avoid swallowing the gel, liquid, or ointment while applying it to your gums or the inside of your mouth. The throat spray or oral lozenge may be swallowed gradually during use. What are the possible side effects of benzocaine topical? Benzocaine topical used in the mouth may cause a condition in which the oxygen in your body tissuescan become dangerously low. This is a potentially fatal condition called methemoglobinemia (met-EM-oh doa-tpp-PJ-reba-a). This condition may occur after only one use of benzocaine or after several uses. Signs and symptoms may occur within minutes or up to 2 hours after using benzocaine topical in the mouth or throat. GET EMERGENCY MEDICAL HELP IF YOU HAVE: a headache, tiredness, confusion; fast heartbeats; feeling light-headed or short of breath; and pale, blue, or royal appearance of your skin, lips, or fingernails. Get emergency medical help if you have signs of an allergic reaction: hives; difficult breathing; swelling of your face, lips, tongue, or throat. Stop using benzocaine topical and call your doctor at once if you have: severe burning, stinging, or sensitivity where the medicine is applied; swelling, warmth, or redness; or oozing, blistering, or any signs of infection. Common side effects may include: mild stinging, burning, or itching where the medicine is applied; skin tenderness or redness; or dry white flakes where the medicine was applied. This is not a complete list of side effects and others may occur. Call your doctor for medical advice about side effects. You may report side effects to FDA at 6-068-TLP-2255. What other drugs will affect benzocaine topical? Medicine used on the skin is not likely to be affected by other drugs you use. But many drugs can interact with each other. Tell each of your health care providers about all medicines you use, including prescription and zvyi-tui-dxvlfrb medicines, vitamins, and herbal products. Where can I get more information? Your pharmacist can provide more information about benzocaine topical. Remember, keep this and all other medicines out of the reach of children, never share your medicines with others, and use this medication only for the indication prescribed. Every effort has been made to ensure that the information provided by [employer]. ('[employer]') is accurate, up-to-date, and complete, but no guarantee is made to that effect. Drug information contained herein may be time sensitive. [employer] information has been compiled for use by healthcare practitioners and consumers in the [place] and therefore [employer] does not warrant that uses outside of the [place] are appropriate, unless specifically indicated otherwise. [employer] drug information does not endorse drugs, diagnose patients or recommend therapy. [employer] drug information isan informational resource designed to assist licensed healthcare practitioners in caring for their p atients and/or to serve consumers viewing this service as a supplement to, and not a substitute for, the expertise, skill, knowledge and judgment of healthcare practitioners. The absence of a warningfor a given drug or drug combination in no way should be construed to indicate that the drug or drug combination is safe, effective or appropriate for any given patient. [employer] does not assume any responsibility for any aspect of healthcare administered with the aid of information [employer] provides. The information contained herein is not intended to cover all possible uses, directions, precautions, warnings, drug interactions, allergic reactions, or adverse effects. If you have questions about the drugs you are taking, check with your doctor, nurse or pharmacist. Copyright 0125-7038 [employer]. Version: 7.01. Revision Date: 05/04/2018. penicillin V potassium (oral) (PEN i ESTEBAN in V anthony TAS ee um) What is the most important information I should know about penicillin V potassium? You should not be treated with this medicine if you are allergic to penicillin. What is penicillin V potassium? Penicillin V potassium is a slow-onset antibiotic that is used to treat many types of mild to moderate infections caused by bacteria, including scarlet fever, pneumonia, skin infections, and infections affecting the nose, mouth, or throat. Penicillin V potassium is also used to prevent the symptomsof rheumatic fever. Penicillin V potassium is also used to prevent infections of the heart valves in people with certain heart conditions who need to have dental work or surgery. Penicillin V potassium may also be used for purposes not listed in this medication guide. What should I discuss with my healthcare provider before taking penicillin V potassium? You should not be treated with this medicine if you are allergic to penicillin. Tell your doctor if you have ever had: an allergic reaction to a cephalosporin antibiotic (Keflex, Omnicef, and others); any type of allergy; asthma or breathing problems; a stomach or intestinal disorder; heart disease; or kidney disease. If you have stomach problems or are sick with severe vomiting or diarrhea, your medication may not be as effective. Penicillin V potassium oral liquid may contain phenylalanine. Tell your doctor if you have phenylketonuria (PKU). Tell your doctor if you are or . Do not give this medicine to a child without medical advice. How should I take penicillin V potassium? Follow all directions on your prescription label and read all medication guides or instruction sheets. Use the medicine exactly as directed. You may take penicillin V potassium with or without food. Shake the oral liquid before you measure a dose. Use the dosing syringe provided, or use a medicinedose-measuring device (not a kitchen spoon). When given before surgery or dental work, penicillin V potassium is usually taken 1 hour before and6 hours after the procedure. Follow your doctor's dosing instructions very carefully. Use this medicine for the full prescribed length of time, even if your symptoms quickly improve. Skipping doses can increase your risk of infection that is resistant to medication. Penicillin V potassium will not treat a viral infection such as the flu or a common cold. After you have finished all doses, your doctor may want to do tests to make sure your infection hascompletely cleared up. Store the tablets at room temperature away from moisture, heat, and light. Store the liquid in a refrigerator. Do not freeze. Throw away any unused liquid after 14 days. What happens if I miss a dose? Take the medicine as soon as you can, but skip the missed dose if it is almost time for your next dose. Do not take two doses at one time. What happens if I overdose? Seek emergency medical attention or call the Poison Help line at . What should I avoid while taking penicillin V potassium? Do not share this medicine with another person, even if they have the same symptoms you have. Antibiotic medicines can cause diarrhea, which may be a sign of a new infection. If you have diarrhea that is watery or bloody, call your doctor before using anti-diarrhea medicine. What are the possible side effects of penicillin V potassium? Get emergency medical help if you have signs of an allergic reaction: hives; fever, chills, joint pain; difficult breathing; swelling of your face, lips, tongue, or throat. Call your doctor at once if you have: severe stomach pain, diarrhea that is watery or bloody (even if it occurs months after your last dose); easy bruising or bleeding; pale or yellowed skin, dark colored urine; numbness, tingling, or burning pain; urination problems; or fever, swollen glands, itching, joint pain, or not feeling well. Common side effects may include: nausea, vomiting, upset stomach; diarrhea; swollen, black, or 'hairy' tongue; rash; or vaginal itching or discharge. This is not a complete list of side effects and others may occur. Call your doctor for medical advice about side effects. You may report side effects to FDA at 1-505-FBF-7522. What other drugs will affect penicillin V potassium? Penicillin V potassium can make control pills less effective. Ask your doctor about using a non-hormonal control (condom, diaphragm with spermicide) to prevent . Other drugs may affect penicillin V potassium, including prescription and wmlk-sxo-relivmj medicines, vitamins, and herbal products. Tell your doctor about all your current medicines and any medicineyou start or stop using. Where can I get more information? Your doctor or pharmacist can provide more information about penicillin V potassium. Remember, keep this and all other medicines out of the reach of children, never share your medicines with others, and use this medication only for the indication prescribed. Every effort has been made to ensure that the information provided by [employer]. ('[employer]') is accurate, up-to-date, and complete, but no guarantee is made to that effect. Drug information contained herein may be time sensitive. [employer] information has been compiled for use by healthcare practitioners and consumers in the [place] and therefore [employer] does not warrant that uses outside of the [place] are appropriate, unless specifically indicated otherwise. [employer] drug information does not endorse drugs, diagnose patients or recommend therapy. [employer] drug information isan informational resource designed to assist licensed healthcare practitioners in caring for their p atients and/or to serve consumers viewing this service as a supplement to, and not a substitute for, the expertise, skill, knowledge and judgment of healthcare practitioners. The absence of a warningfor a given drug or drug combination in no way should be construed to indicate that the drug or drug combination is safe, effective or appropriate for any given patient. [employer] does not assume any responsibility for any aspect of healthcare administered with the aid of information [employer] provides. The information contained herein is not intended to cover all possible uses, directions, precautions, warnings, drug interactions, allergic reactions, or adverse effects. If you have questions about the drugs you are taking, check with your doctor, nurse or pharmacist. Copyright 7821-3812 [employer]. Version: 2.01. Revision Date: 08/12/2019. Education Materials Dental Abscess A dental abscess is an infection of the tooth socket. It often starts with a crack or cavity in thetooth. A pocket of pus forms between the tooth and the bone. The infection causes pain and swellingof the gum, cheek, or jaw. The pain is often made worse by drinking hot or cold fluids, or biting on hard foods. Pain may be felt in the facial sinus or in the ear. A severe infection can cause problems with swallowing and breathing. Causes Cavities Trauma Previous dental work Symptoms Pain Swelling around the tooth or face and cheek Redness Bad breath Bad taste in the mouth Fever You will be started on an antibiotic. But, final treatment requires draining the pus. This can be done by removing the tooth or getting a root canal. An oral surgeon typically removes diseased teeth.An safemaker does a root canal. This involves drilling an opening in the tooth to get to access the canals in the root. Once these are reached, the pus can be drained. Then the canals are cleaned and shaped before filling them with a special material called tanya percha. After the infection has healed, a crown is placed over the tooth. Home care The following guidelines will help you care for your abscess at home: Don't have hot or cold foods and liquids. Your tooth may be sensitive to temperature changes. If your tooth is chipped or cracked, or if there is a large open cavity, apply oil of cloves directly to the tooth to reduce pain. Oil of cloves is sold tcmj-utf-bgxrzvi in pharmacies. Some pharmacies carry an pjqx-ohs-brcnwdv toothache kit. This contains oil of cloves and a paste, which can be applied over the exposed tooth to decrease sensitivity. Apply an ice pack (ice cubes in a plastic bag, wrapped in a towel) over the injured area for 10 to 20 minutes every 1 to 2 hours the first day for pain relief. Continue this 3 to 4 times a day until the pain and swelling goes away. To make an ice pack, put ice cubes in a plastic bag that seals at the top. Wrap the bag in a clean, thin towel or cloth. Never put ice or an ice pack directly on the skin. You can take acetaminophen or ibuprofen for pain, unless you were given a different pain medicine to use. If you have chronic liver or kidney disease, have ever had a stomach ulcer or gastrointestinal bleeding, or are taking blood- thinning medicines, talk with your healthcare provider before using these medicines. An antibiotic will be prescribed. Take it as directed until completed, even if you are feeling better sooner. Follow-up care Follow up as advised with an safemaker, or oral surgeon. Even though your pain may improve with the treatment given today, only a dentist, safemaker, or oral surgeon can provide full treatment for this problem. If a culture was done, you will be told if the treatment needs to be changed. You can call in as directed for the results. If X-rays were taken, they will be reviewed by a specialist. You will be given the results, especially if they affect treatment. Call 911 Call 911 if any of these occur: Trouble breathing or swallowing, or wheezing Hoarse voice or trouble speaking Confusion Extreme drowsiness or trouble awakening Fainting or loss of consciousness Rapid heart rate When to seek medical advice Call your healthcare provider right away if any of these occur: Swollen or red face or eyelid Pain gets worse or spreads to the neck You have a fever of 100.4 F (38 C) or higher, or as directed by your healthcare provider Unusual drowsiness, a headache or stiff neck, or weakness Pus drains from the gum or tooth You can't open your mouth wide [id number] [employer]. [address] [place] [address], [place] [address]. All rights reserved. This information is not intended as a substitute for professional medical care. Always follow yourhealthcare professional's instructions. Additional Information VACCINATE! IT SAVES LIVES! Members of the community who have not yet received the COVID-19 vaccine and would like to receive it can visit one of [facility] vaccine clinics. There are many vaccine clinic locations within the [facility]. For locations and available times, please visit [email or web address]. It is important to note that some COVID mobile vaccine clinics are held outdoors and may be canceled in rainy orstormy conditions. To learn more about pediatric vaccinations (ages 5-11), we invite you to visit the [facility] webpage. [email or web address] [email or web address] learn more about the COVID-19 vaccine, we invite you to visit the [facility] website for a list of frequently asked questions. [email or web address] [place] [email or web address] Patient Portal Access Instructions: Stay connected with your healthcare team and access your personal medical information anytime with the [facility] Patient Portal. If you would like a full copy of your medical records please contact the [facility] Medical Records Department Monday through Monday between 8a.m. and 4:30p.m. Please follow the directions below to access the portal: 1.Access the email account you provided upon registration to the [facility].2.Look for an invitation email from [facility].3.Open the email and access the invitation link: Accept Invitation to [facility].Fill in the required multani to create your account. Sign into [email or web address] with your username and password that you created in the above steps to stay up to date. You can then view a summary of results, a summary of your visits, and the ability to download your summaries to your computer or send the information securely to a physician. Remember that your healthcare information is confidential, so carefully consider who you will allow to register on the [facility] Portal for access to your information. You can also access the [facility] Patient Portal on the [employer]ito. Simply click on Health Records under MEDOP and then click on the [employer] logo. HOW TO SAFELY DISPOSE OF PRESCRIPTION MEDICATIONS Please use one of the following methods to safely dispose of your unused medications. 1.Use a drug disposal kit: the drug disposal pouch allows you to safely discard your old and unuseddrugs. Ask your nurse to give you one when you are discharged.2.Visit a local take-back location: Many local pharmacies and police departments have programs that collect old and unwanted prescriptiondrugs. Call your local pharmacy or go to [email or web address] to find one close to you.3.Make use of household items: Use cat litter or old coffee grounds to dispose medications if other options arenot available. Mix your drugs with these household products, seal them in an airtight container andthrow it into the garbage. Call [facility]: [phone] to be sure your drugs can be disposed of in this way. Some medicines may require a different approach.4.Never flush your medications down the toilet. IF YOU HAVE BEEN PRESCRIBED AN OPIOIDS FOR PAIN If you have been prescribed an opioid (such as hydrocodone, oxycodone or morphine), it is critical to understand the possible side effects and risks of opioid pain medications. Even when taken as directed, opioids can have several side effects including: Tolerance, meaning you might need to take more of a medication for the same pain relief. Nausea, vomiting and/or constipation. Sleepiness, dizziness, dry mouth, confusion, depression or itching. Physical dependence, meaning you have withdrawal symptoms when a medication is stopped ? this can develop within a few days. KNOW YOUR RESPONSIBILITIES It is important to know exactly how much and how often to take the opioid pain medications you are prescribed. Never take opioids in higher amounts or more often than prescribed. Do not combine opioids with alcohol or other drugs that cause drowsiness, such as benzodiazepines, also known as benzos,including diazepam and alprazolam, muscle relaxants or sleep aids. Never sell or share prescriptionopioids. This is illegal. Store opioids in a secure place and out of reach of others (including children, family, friends and visitors). The last page(s) of this document has been signed and retained as a CHART COPY Signatures Patient Education Materials Tooth Abscess Medication Leaflets nabumetone, benzocaine topical, penicillin V potassium (oral) My discharge plan and instructions have been reviewed and explained to me and I,DEAN WHITE understand my current condition and have read and understand these discharge instructions. I have received a written copy of the plan/instructions. If I have questions, I am aware that I should contact my doctor. Patient/Day Care Attendant Signature: Date/Time: Relationship to Patient: Witness Name/Signature: Date/Time: [facility]06-01-2022 Miscellaneous Notes* Telephone Encounter - Rekha Freeman - 04/27/2022 8:19 AM EDT Patient given results and verbalized understanding of instructions given. Rekha Freeman * Telephone Encounter - Jennifer Engel APRN.CNP - 04/27/2022 7:28 AM EDT Please notify of negative flu and covid test. Continue comfort measures for symptoms as you would for a cold. Any worsening symptoms follow up with PCP or ER. Jennifer Engel [facility].CNP [facility] of Present illness Narrative* Mariam Kraft APRN.CNP - 04/26/2022 11:27 AM EDT CC: Patient presents with: Ear Pain: (LT) ear pain rated 6, 4 days, cough SOB, intermittent chest pain Sore Throat: pain rated 5, x4 days HPI: Dean White is a 31 year old male who presents to the office with complaint of head congestion, cough, nonproductive, wheezing, sore throat and ear symptoms for a few days. Symptoms are worsening Associated symptoms includes sore throat and ear pain. Denies fever, nausea, vomiting and diarrhea. Treatments tried include nothing so far. with no relief of symptoms. Sick contacts: unknown. History of asthma, frequent episodes of bronchitis, chronic bronchitis, bronchiectasis or COPD: No Smoker: No Seasonal/environmental allergies: No The ROS is otherwise negative. The patient's pmh, medications, allergies, and past visits are reviewed. PHYSICAL EXAM: BP 124/80 Pulse 100 Temp 37 C (98.6 F) Resp 22 Wt 91.2 kg (201 lb) SpO2 99% General appearance: alert, cooperative, pleasant, in no acute distress Head: Normocephalic Eyes: EOM's intact, conjunctiva pink and moist, no icterus, sclera white, non-injected Ears: Right ear: External ear/canal- Normal, TM - clear with good landmarks. Left ear: External ear/canal- Normal, TM - erythematous, bulging Oropharynx:mild erythema, without exudates present Heart: Negative. RRR without obvious murmur, gallop, or rubs. No ectopy. Lungs: clear to auscultation, without rales or wheeze, good air exchange PAST MEDICAL HISTORY Diagnosis Date Allergic rhinitis, cause unspecified PAST SURGICAL HISTORY Procedure Laterality Date NONE ALLERGIES Patient has no known allergies. MEDICATIONS LORATADINE 10 MG TAB Take one(1) tablet daily prn allergy symptoms amoxicillin (AMOXIL) 875 mg tablet Take 1 tablet by mouth twice daily for 7 days. predniSONE (DELTASONE) 20 mg tablet Take 2 tablets by mouth once daily for 4 days. KETOTIFEN FUMARATE 0.025 % EYE DROPS 1 drop in afected eye(s) every 8 to 12 hours as needed fluticasone propionate(FLONASE 50 MCG/ACTUATION NASAL SPRAY) 1 spray per nostril once a day prn nasal allergy symptoms FAMILY HISTORY Problem Relation Age of Onset Diabetes Maternal Grandfather Cancer Maternal Grandmother breast and lung cancer non smoker Social History Tobacco Use Smoking status: Passive Smoke Exposure - Never Smoker Smokeless tobacco: Never Used Substance Use Topics Alcohol use: Yes Drug use: Yes Types: Marijuana ASSESSMENT/PLAN: 1. Sore throat - ICD9: 462, ICD10: J02.9 (primary diagnosis) - COVID WITH FLUA+B, ROUTINE - STREP A MOLECULAR (POC) - negative 2. Cough - ICD9: 786.2, ICD10: R05.9 - COVID WITH FLUA+B, ROUTINE 3. Non-recurrent acute suppurative otitis media of left ear without spontaneous rupture of tympanicmembrane - ICD9: 382.00, ICD10: H66.002 Amoxicillin bid for 7 days. prednisone for 4 days. Waiting on covid test. Will follow up if anything worsens. Mariam Kraft APRN.OLIVING MACHINE OPERATOR Prescription instructions reviewed with patient as applicable. Potential red flag symptoms discussed with the patient. Reviewed appropriate action plan to take if red flag symptoms occur. Patient agreeable to treatment plan. Mariam Kraft APRN.[facility]AL [facility] Plan note Future Scheduled Tests Radiology* XR Spine Cervical 1 View 01/22/21 * MRI Spine Cervical w/o Contrast 02/03/21 * XR Spine Cervical AP/LAT 01/22/21 [facility] Evaluation note* Diagnosis Sore throat- Primary Acute pharyngitis Cough Non-recurrent acute suppurative otitis media of left ear without spontaneous rupture of tympanic membrane documented in this encounter [facility] note* Diagnosis Pain, dental- Primary Unspecified disorder of the teeth and supporting structures documented in this encounter [facility] noteNo assessment information availableWJoint [facility] Work Phone: Evaluation note* Diagnosis Acute otitis media, left- Primary Unspecified otitis media Flu-like symptoms Other general symptoms documented in this encounter [facility] [place] course Narrative No data available for this section [facility] Discharge instructions No data available for this section [facility] Discharge instructions Additional Instructions Please follow-up with your dentist, take antibiotics as prescribed and return for any worsening of symptoms.[facility] Work Phone: Progress note No data available for this section [facility] Health Concerns Infection Onset Date Last Indicated Resolved Time COVID-19 Rule-Out 04/26/2022 04/26/2022 Medications Administered Section Inactive Administered Medications - up to 3 most recent administrations Medication Order MAR Action Action Date Dose Rate Site keTORolac 60 mg injection (TORADOL) 60 mg, INTRAMUSCULAR, ONCE, 1 dose, On Mon07/08/22 at 1100, Ketorolac (Toradol) is indicated for the short-term (up to 5 days) management of moderately severe acute pain. Continuation of ketorolac (Toradol) beyond 5 days increases the risk of developing serious adverse events. Please verify the duration of therapy for ketorolac (Toradol)., If ordered PRN for pain, patient/guardian may elect to receive this medication for higher pain levels INSTEAD of the opioid, if preferred: Yes Given 07/08/2022 11:11 AM EDT 60 mg Buttocks, Left Summary Purpose Family History No Family History Records Found Advance Directives No Advanced Directives Records Found Advance Directive Response Recorded Date/ Time Advance Directives No December 06, 2016 4:40pm Living Will No August 27 10:59am Power of Thread Grinder No August 27 023 10:59am Advance Directive Response Recorded Date/ Time Advance Directives No December 06, 2016 4:40pm Living Will No February 20, 2024 10:14pm Power of Thread Grinder No February 19 24 10:14pm Chief Complaint and Reason for Visit Chief Complaint DENTAL PAIN Chief Complaint suicidal Additional Source Comments Source Comments (unrecognize d section and content) In the event this informatio n is protected by the Federal Confidentiality of Alcohol and Drug Abuse Patient Records regulations: The Federal rules restrict any use of the information to criminally investigate or prosecute any alcohol or drug abuse patient.[facility] the event this information is protected by the Federal Confidentiality of Alcohol and Drug Abuse Patient Records regulations: The Federal rules restrict any use of the information to criminally investigate or prosecute any alcohol or drug abuse patient.[facility] the event this information is protected by the Federal Confidentiality of Alcohol and Drug Abuse Patient Records regulations: The Federal rules restrict any use of the information to criminally investigate or prosecute any alcohol or drug abuse patient.[facility] the event this information is protected by the Federal Confidentiality of Alcohol and Drug Abuse Patient Records regulations: The Federal rules restrict any use of the information to criminally investigate or prosecute any alcohol or drug abuse patient.[facility] the event this information is protected by the Federal Confidentiality of Alcohol and Drug Abuse Patient Records regulations: The Federal rules restrict any use of the information to criminally investigate or prosecute any alcohol or drug abuse patient.[facility] Reason for Visit (unrecogniz ed section and content) Reason Comments Ear Pain (LT) ear pain rated 6, 4 days, cough SOB, intermittent chest pain Sore Throat pain rated 5, x4 day s Specialty Diagnoses / Procedures Referred By Contac t Referred To Contact Family Practice / [facility] Diagnoses Ear pain Cough Sore throat congestion, ear pain, cough, sore throat, sob Procedures OFFICE/OUTPATIENT ESTABLISHED MOD MDM 30-39 MIN URGENT CARE Self Mariam Kraft APRN.OLIVING MACHINE OPERATOR [address] [place] [address] Referral ID Status Reason Start Date Expiration Date Visits Re quested Visits Authorized [id number] Closed 04/26/2022 11/26/2022 1 1 Reason Comments Results Reason Comments Dental Problem Tooth pain x 4 days Specialty Diagnoses / Procedures Referred By Contac t Referred To Contact Internal Medicine / [facility] Diagnoses Tooth infection possible infection in tooth Procedures OFFICE/OUTPATIENT ESTABLISHED MOD MDM 30-39 MIN EST SAME DAY Jennifer Engel APRN.OLIVING MACHINE OPERATOR [id number] [id number] [facility] [address] [place] [address] Referral ID Status Reason Start Date Expiration Date Visits Re quested Visits Authorized [id number] Closed 07/08/2022 11/26/2022 1 1 Reason Comments Fever Bodyaches, chills, c ongestion, cough, sore throat, vomiting x 3 days Ear Pain Bilat ear pain, L wo rse x 3 days Reason Comments Patient Question Care Team (unrecognized sect ion and content) Care Team Personnel Name: Nita Stafford Position: Quality Review Med Service: Me3E Member Role: Motor Coach Tour Operator Name: MARQUIS PEMBERTON ASSISTANT FIELD HOCKEY COACH - OLIVING MACHINE OPERATOR Position: P4 Advanced Practice Nurse Med Service: Employed Provider Member Role: Primary Care Physician Address: Address: [address] [facility] [place], [place] [address] Care Team Related Persons Name: CHAYITO QUIÑONEZ Name: OLIVIA WHITE Address: [address], [place] [id number] Patient Care team informatio n (unrecognized section and content) Team Status: Active Member Role Status Dates Marquis Pemberton TOOL MAINTENANCE WORKER, TOOL MAINTENANCE WORKER-C Family Provider Activ e Marquis Pemberton TOOL MAINTENANCE WORKER, TOOL MAINTENANCE WORKER-C Primary Care Provider Active Team Status: Inactive Member Role Status Dates Dr. Sergio Ragsdale MD Emergency Provider Active Marquis Pemberton TOOL MAINTENANCE WORKER, TOOL MAINTENANCE WORKER-C Primary Care Provider Active Team Status: Active Member Role Status Dates Marquis Pemberton TOOL MAINTENANCE WORKER, TOOL MAINTENANCE WORKER-C Family Provider Activ e No Primary Care Physician Primary Care Provider Active Team Status: Inactive Member Role Status Dates No Primary Care Physician Primary Care Provider Active Dr. Roberto Carlos Erickson MD Emergency Provider Active (unrecognized sect ion and content) No Status Records FoundNo Status Records FoundNo Status Records FoundNo Status Records Found INFORMATION SOURCE (unrecogn ized section and content) DATE CREATED AUTHOR 07/03/2023 [facility] DATE CREATED AUTHOR AUTHOR'S ORGANIZ ATION 11/21/2024 [facility] DATE CREATED AUTHOR AUTHOR'S ORGANIZ ATION 11/22/2024 [facility] DATE CREATED AUTHOR AUTHOR'S ORGANIZ ATION 01/01/[address] [facility] Goals (unrecognized section and content) Goals may be documented in a n alternate section FOR RECORDS PERTAINING TO PATIENTS WHO ARE OR HAVE BEEN ENROLLED IN A CHEMICAL DEPENDENCY/SUBSTANCEABUSE PROGRAM, SOME INFORMATION MAY BE OMITTED. This clinical summary was aggregated from multiple sources. Caution should be exercised in using it in the provision of clinical care. This summary normalizes information from multiple sources, and as a consequence, information in this document may materially change the coding, format and clinical context of patient data. In addition, data may be omitted in some cases. CLINICAL DECISIONS SHOULD BE BASED ON THE PRIMARY CLINICAL RECORDS. [facility] [employer] [facility]. provides no warranty or guarantee of the accuracy or completeness of information in this document.
[2025-05-06 00:31] LABS: Alcohol, Blood (Medical)-Serum < 10.1 mg/dL (<=10.0)
[2025-05-06 03:02] VITALS: BP 126/82; PULSE 98; RESP 16; TEMP 36.4; O2SAT 98
== END 2025-05-06 03:03 | disposition home or self-care (01) ==
PROVIDERS: Emergency Provider Emergency Medicine; Visit Provider Emergency Medicine
DX: F41.9 Anxiety disorder, unspecified (principal); F17.290 Nicotine dependence, other tobacco product, uncomplicated; Z91.51 Personal history of suicidal behavior
CPT/HCPCS: 36415; 80048; 80307; 82077; 85025; 99283